=== PATIENT | female | born 1970 | race Caucasian/White ===

== ENCOUNTER → 2016-02-15 | Outpatient (CLI) | payer OTHER ==
[~2016-02-15] MED LIST: ALBUAER2 INH; ATOR-54 PO; BENZ100C84 PO; CYCL5TAB PO; CYM/30 PO; ESCI1TAB10 PO; KLN5X PO; LACO100T PO; LACO200T PO; LPT/40 PO; LYR50 PO; MELO15TA10 PO; METH500T37 PO; OMEP20CA9 PO; OXYC-106 PO; OXYC-88 PO; OXYC15TA89 PO; TROS1CAP2 PO
[2016-02-15 12:55] VITALS: BP 102/67; PULSE 70; TEMP 36.6; O2SAT 96
--- NOTE | 2016-02-15 15:30 | Radiation Oncology Follow-Up ---
Radiation Oncology Follow-Up Date of Visit Feb 15, 2016. (Carolyn Rubin PA-C) Reason For Visit Post radiation symptoms (Carolyn Rubin PA-C) Radiation Completion Date 04/19/15 (Carolyn Rubin PA-C) Diagnosis (1) Squamous cell carcinoma of anal skin Status: Resolved Onset Date: 01/20/2015 Stage: ll Permanent Comment: DIAGNOSIS: Anus, SCC, p16 positive, cT2N0, stage II Status post completion of combined radiation and chemotherapy. Radiation completed 04/19/2015 received 5400 cGy Last Edited By: Carolyn Rubin on Apr 28, 2015 10:30 (Carolyn Rubin PA-C) History of Present Illness Ms. Pulido is a 44-year-old female who presented one year ago with anal discomfort including transient bleeding and discomfort with defecation. 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 Hayes. Dr. Hayes evaluated the patient and recommended excision of the possible anal stricture. The patient was brought to the operating room on 01/20/2015. During his examination, he noted chronically inflamed tissue extending on the skin for the 9 to 12 o'clock position around the anus which extended into the anal canal. Biopsies were taken in came back positive for squamous cell carcinoma which is also p16 positive. Currently, staging scans are pending. The patient is also seen Dr. Otto Malhotra for medical oncology who is recommended consideration of pelvic chemoradiation therapy. Status post completion of combined radiation and chemotherapy. Radiation completed 04/19/2015 she received 5040 cGy. (Carolyn Rubin PA-C) Interim History The patient's main complaint today is dysuria. This continues to occur intermittently. She stated her urine was evaluated and there was no infection. AZO recommended. She was recently seen at gynecology and evaluated. 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 The physician felt that this may have been exacerbated by her radiation/chemotherapy. We discussed that the immune system is lowered with treatment. She has soreness in the perianal area after having a bowel movement. The bowel movements are pencil size. She is seeing Dr. Hayes and there is anal stenosis. His recent examination revealed no recurrence of disease. There was irritation of the perianal area for which she was a topical steroid cream. She is picking that up today. We had previously discussed using Metamucil to keep the stool soft. She states she continues to use this on a regular basis. During the treatment time. There was significant skin irritation and she used sitz baths. She has not done these of weight. (Carolyn Rubin PA-C) Allergies Coded Allergies: Levetiracetam (Verified Allergy, Mild, RASH, 02/23/15) Carbamazepine (Verified Allergy, Unknown, ., 02/23/15) Codeine (Verified Allergy, Unknown, ., 02/23/15) Home Medications Scheduled Atorvastatin (Lipitor), 20 MG PO HS Clonazepam (Clonazepam), 0.5 MG PO QAM Duloxetine HCl (Cymbalta), 1 CAP PO DAILY Lacosamide (Vimpat), 200 MG PO BID Oxycodone Hcl (Oxycontin), 15 MG PO Q12 Scheduled PRN Albuterol (Ventolin), 1-2 PUFFS INH Q4H PRN for Shortness of Breath Benzonatate (Tessalon Perles), 1 CAP PO TID PRN for Cough Cyclobenzaprine Hcl (Flexeril), 5 MG PO TID PRN for SPASM Oxycodone/Acetaminophen 10MG/325MG (Oxycodone/Acetaminophen 10MG/325MG), 1-2 TAB PO Q6H PRN for Pain Review of Systems Gastrointestinal: Symptoms: WNL GI Comments: Diarrhea - pencil like stools, blood in stool at times (last month) Oral: Symptoms: No Problems Respiratory: Symptoms: WNL Urinary: Symptoms: WNL Comments: Dr. Jones diagnosed with HPV - recc AZO Skin: Other Skin Symptoms: Rash in anal region - Ramondelli prescribed cortisone cream (Carolyn Rubin PA-C) Physical Exam Vital Signs Date Time Temp Pulse Resp B/P Pulse Ox O2 Delivery O2 Flow Rate FiO2 02/15/16 12:55 36.6 70 16 102/67 96 Fatigue: None Anal / Rectum: Examination reveals postradiation changes. No area with minimal induration. There is no telangiectasis. There are no visible lesions. There are no areas of desquamation. Extremities: no pedal edema Neurologic/Psychiatric: no motor/sensory deficits, alert Skin: warm/dry (Carolyn Rubin PA-C) Laboratory Studies Test 12/30/15 10:58 Sodium Level 145 mmol/L (136-145) Potassium Level 4.2 mmol/L (3.5-5.1) Chloride Level 107 mmol/L (98-107) Carbon Dioxide Level 29 mmol/L (21-32) Anion Gap 9.0 mmol/L (3-11) Blood Urea Nitrogen 16 mg/dl (7-18) Creatinine 0.74 mg/dl (0.60-1.20) Estimated GFR () 112.6 Estimated GFR (Non- 97.2 BUN/Creatinine Ratio 21.8 (10-20) Random Glucose 96 mg/dl (70-99) Calcium Level 9.0 mg/dl (8.5-10.1) Total Bilirubin 0.5 mg/dl (0.2-1) Aspartate Amino Transferase (AST) 30 U/L (15-37) Alanine Aminotransferase (ALT) 43 U/L (12-78) Alkaline Phosphatase 88 U/L (45-117) Total Protein 7.4 gm/dl (6.4-8.2) Albumin 3.8 gm/dl (3.4-5.0) Globulin 3.6 gm/dl (2.5-4.0) Albumin/Globulin Ratio 1.1 (0.9-2) Triglycerides Level 222 mg/dl (0-150) Cholesterol Level 215 mg/dl (0-200) HDL Cholesterol 52 mg/dl LDL Cholesterol, Calculated 119 mg/dl VLDL Cholesterol, Calculated 44 mg/dl Cholesterol/HDL Ratio 4.1 Chemistry Specimen Hemolysis Urine Opiates Screen POS (NEG) Urine Codeine Confirmation (GC/MS) NEGATIVE NG/ML (CUTOFF=50) Urine Morphine Confirm (GC/MS) NEGATIVE NG/ML (CUTOFF=50) Urine Hydrocodone Confirm (GC/MS) NEGATIVE NG/ML (CUTOFF=50) Urine Norhydrocodone NEGATIVE NG/ML (CUTOFF=50) Urine Noroxycodone 4370 NG/ML (CUTOFF=50) Urine Oxycodone Confirm (GC/MS) 1120 NG/ML (CUTOFF=50) Urine Oxymorphone Confirm (GC/MS) 2210 NG/ML (CUTOFF=50) Urine Methadone, Qualitative NEG (NEG) Urine Hydromorphone Confirm (GC/MS) NEGATIVE NG/ML (CUTOFF=50) Urine Barbiturates NEG (NEG) Urine Phencyclidine (PCP) Level NEG (NEG) Ur Amphetamine/Methamphetamine NEG (NEG) MDMA (Ecstasy) Screen NEG (NEG) Urine Benzodiazepines Screen NEG (NEG) Urine Cocaine Metabolite NEG (NEG) Urine Marijuana (THC) NEG (NEG) (Carolyn Rubin PA-C) Assessment & Plan Plan: Patient is also seen today by Dr. Malhotra. Her symptoms were reviewed. We are in agreement with the use of the topical steroid which has been prescribed by Dr. Hayes. She is picking up the prescription today. She can continue to use Azo for the dysuria. I recommended sitz baths or the perianal irritation. She should do this at least once or twice a day. We discussed using adult wipes to prevent irritation to the perianal area. She'll continue the Metamucil. I suggested Aquaphor or Desitin to act as a barrier in the perianal area. She has appointment to see Dr. Bledsoe. Continue follow-up with medical oncology. We asked her to return to our office in 6 months. (Carolyn Rubin PA-C) I agree with note created by Carolyn Rubin PA-C. I reviewed the patient's chart and information with her. I have examined and evaluated the patient. I reviewed relevant clinical information and answered the patient's and/or family' s questions. (Veeral. Malhotra MD) Total Time In Follow-Up I spent 20 minutes speaking to the patient performing examination. I spent 15 minutes reviewing information in completing this note. (Carolyn Rubin PA-C) I spent 15 minutes examining and counseling the patient. (Veeral. Malhotra MD) Copy To Dede Isaacs DO; Otto Malhotra M.D.; Domingo Hayes M.D.
== END | disposition home or self-care (01) ==
LOC: C.ONC 12:52
PROVIDERS: ATTEND Radiology Radiation Oncology
DX: Z08 Encounter for follow-up examination after completed treatment for malignant neoplasm (principal); Z92.3 Personal history of irradiation; Z85.048 Personal history of other malignant neoplasm of rectum, rectosigmoid junction, and anus

== ENCOUNTER → 2016-03-21 | Day surgery (SDC) | payer OTHER ==
[2016-03-19 10:28] VITALS: BMI 36.0
[~2016-03-21] VITALS: Ht 175.3 cm; Wt 111.4 kg
[~2016-03-21] MED LIST changes: -ATOR-54 PO; -BENZ100C84 PO; -CYM/30 PO; +LIDOCAINE HCL 2% 2 ML VIAL (20MG/ML) ONE; +MIDAZOLAM HCL 1 MG/ML 2ML VIAL ONE; -OXYC-88 PO; +PROPOFOL IV EMULSION 10 MG/ML 20 ML VIAL IV ONE; +SODIUM CHLORIDE 0.9% 500ML 500 ML IV ONE
[2016-03-21 13:59] VITALS: Ht 175.3 cm; Wt 111.4 kg
--- NOTE | 2016-03-21 15:01 | Endo History and Physical ---
History & Physical Date of Service: Mar 21, 2016. Chief Complaint: HX OF ANAL CA. Referring Physician: DR. LERMA History of Present Illness anal CA; for colonoscopyfecal incontinence Past Medical History Arthritis, Reflux, Seizure Disorder, Cancer, High Cholesterol Past Surgical History Hx Cardiac Surgery: No Hx Internal Defibrillator: No Hx Pacemaker: No Hx Abdominal Surgery: No Hx of Implantable Prosthesis: No Hx Post-Op Nausea and Vomiting: No Hx Cancer Surgery: Yes (CARCINOMA REMOVAL FROM ANUS) Hx Thoracic Surgery: No Hx Orthopedic: No Hx Urinary Tract Surgery: No Family History None Social History Smoking Status: Current Every Day Smoker Hx Substance Use: Yes (SEE MED LIST) Hx Alcohol Use: No Allergies Coded Allergies: Levetiracetam (Verified Allergy, Mild, RASH/HIVES, 03/21/16) Carbamazepine (Verified Allergy, Unknown, HIVES, 03/21/16) Codeine (Verified Allergy, Unknown, UNKNOWN, 03/21/16) Morphine (Verified Allergy, Unknown, DIZZINESS, 03/21/16) Current Medications Reported Home Medications Medications Dose Route/Sig Max Daily Dose Days Date Category Vimpat (Lacosamide) 200 Mg Tab 1 Tab PO HS 03/19/16 Reported Vimpat (Lacosamide) 100 Mg Tab 1 Tab PO QAM 03/19/16 Reported Percocet 10MG/325MG (Oxycodone/Acetaminophen) Tab 1 Tab PO Q4H PRN 03/19/16 Reported Mobic (Meloxicam) 15 Mg Tab 15 Mg PO AFTERNOON 03/19/16 Reported Lexapro (Escitalopram Oxalate) 20 Mg Tab 20 Mg PO QAM 03/19/16 Reported Lipitor (Atorvastatin) 40 Mg Tab 40 Mg PO HS 03/19/16 Reported Oxycontin (Oxycodone Hcl) 15 Mg Tab 15 Mg PO Q12 11/02/15 Reported Flexeril (Cyclobenzaprine Hcl) 5 Mg Tab 5 Mg PO TID PRN 02/16/15 Reported Ventolin (Albuterol) Inh 1-2 Puffs INH Q4H PRN 12/26/14 Reported Clonazepam 0.5 Mg Tab 0.5 Mg PO QAM PRN 12/26/14 Reported Vital Signs Weight (Kilograms): 111.36 Height (Feet): 5 Height (Inches): 9 Date Time Temp Pulse Resp B/P Pulse Ox O2 Delivery O2 Flow Rate FiO2 03/21/16 14:18 36.6 89 20 118/78 97 Room Air Physical Exam AAO x3 Nl s1s2 Lungs CTA Abd soft NTNd + BS - CCE Assessment and Plan colopnoscopy
--- NOTE | 2016-03-21 15:42 | Discharge Instructions ---
Endoscopy Patient Instructions Date / Procedure(s) Performed Mar 21, 2016. Colonoscopy Allergy Information Coded Allergies: Levetiracetam (Verified Allergy, Mild, RASH/HIVES, 03/21/16) Carbamazepine (Verified Allergy, Unknown, HIVES, 03/21/16) Codeine (Verified Allergy, Unknown, UNKNOWN, 03/21/16) Morphine (Verified Allergy, Unknown, DIZZINESS, 03/21/16) Discharge Date / Findings Mar 21, 2016. colon polyp; anal polyp Medication Instructions Stopped Medication(s): INSTRUCTED TO STOP TAKING THE MOBIC. Restart Stopped Medication(s): Reported Home Medications Medications Dose Route/Sig Max Daily Dose Days Date Category Vimpat (Lacosamide) 200 Mg Tab 1 Tab PO HS 03/19/16 Reported Vimpat (Lacosamide) 100 Mg Tab 1 Tab PO QAM 03/19/16 Reported Percocet 10MG/325MG (Oxycodone/Acetaminophen) Tab 1 Tab PO Q4H PRN 03/19/16 Reported Mobic (Meloxicam) 15 Mg Tab 15 Mg PO AFTERNOON 03/19/16 Reported Lexapro (Escitalopram Oxalate) 20 Mg Tab 20 Mg PO QAM 03/19/16 Reported Lipitor (Atorvastatin) 40 Mg Tab 40 Mg PO HS 03/19/16 Reported Oxycontin (Oxycodone Hcl) 15 Mg Tab 15 Mg PO Q12 11/02/15 Reported Flexeril (Cyclobenzaprine Hcl) 5 Mg Tab 5 Mg PO TID PRN 02/16/15 Reported Ventolin (Albuterol) Inh 1-2 Puffs INH Q4H PRN 12/26/14 Reported Clonazepam 0.5 Mg Tab 0.5 Mg PO QAM PRN 12/26/14 Reported Provider Instructions Activity Restrictions - No exercising or heavy lifting for 24 hours. - Do not drink alcohol the day of the procedure. - Do not drive a car or operate machinery until the day after the procedure. - Do not make any important decisions or sign important papers in 24 hours after the procedure. Following Day: - Return to full activity which may include returning to work/school. Diet Start your diet with liquids and light foods (jello, soup, juice, toast). Then eat your usual diet if not nauseated. Treatment For Common After Affects For mild abdominal pain, bloating, or excessive gas: - Rest - Eat lightly - Lie on right side Follow-Up Information Follow-up with DR. LERMA as scheduled Anesthesia Information What You Should Know You have had a procedure that required some medicine to reduce anxiety and discomfort. This treatment is called moderate sedation. After receiving the treatment, you may be sleepy, but you will be able to breathe on your own. The effects of the treatment may last for several hours. Follow these instructions along with Activity/Diet recommendations noted above: * Do NOT do anything where dizziness or clumsiness would be dangerous. * Rest quietly at home today, then you can be up and about tomorrow. * Have a responsible person stay with you the rest of today. * You may have had an I.V. today. If so, you may take the dressing off later today. Recommendations Call your doctor if: * Trouble breathing * Continuous vomiting for more than 24 hours * Temperature above 101 degrees * Severe abdominal pain or bloating * Pain not relieved by pain medicine ordered * There is increased drainage or redness from any incision * A large amount of rectal bleeding greater than 2-3 tablespoons. (If you had a polyp/s removed or have hemorrhoids, a small amount of blood - from the rectum is to be expected.) * You have any unanswered questions or concerns. IN THE EVENT OF A SERIOUS EMERGENCY, GO TO THE NEAREST EMERGENCY ROOM Your discharge instructions were prepared by provider Ck Dillard. Patient Instructions Signature Page Aimee Pulido Patient (or Guardian) Signature/Date: I have read and understand the instructions given to me by my caregivers. Caregiver/RN/Doctor Signature/Date: The above-named patient and/or guardian has received patient instructions on this date. + Original Patient Signature Page (only) stays with chart. Please make copy for patient.
--- NOTE | 2016-03-21 15:49 | GI REPORT ---
Procedure Date: 03/21/2016 3:02 PM Procedure: Colonoscopy Indications: High risk colon cancer surveillance: Personal history of colon cancer, Personal history of malignant rectal neoplasm Medicines: Propofol per Anesthesia Complications: No immediate complications. Estimated blood loss: Minimal. Estimated Blood Loss: Estimated blood loss was minimal. Procedure: Pre-Anesthesia Assessment: - Prior to the procedure, a History and Physical was performed, and patient medications and allergies were reviewed. The patient's tolerance of previous anesthesia was also reviewed. The risks and benefits of the procedure and the sedation options and risks were discussed with the patient. All questions were answered, and informed consent was obtained. Prior Anticoagulants: The patient has taken no previous anticoagulant or antiplatelet agents. ASA Grade Assessment: II - A patient with mild systemic disease. After reviewing the risks and benefits, the patient was deemed in satisfactory condition to undergo the procedure. After I obtained informed consent, the scope was passed under direct vision. Throughout the procedure, the patient's blood pressure, pulse, and oxygen saturations were monitored continuously. The scope was introduced through the anus and advanced to the terminal ileum, with identification of the appendiceal orifice and IC valve. The colonoscopy was performed without difficulty. The patient tolerated the procedure well. The quality of the bowel preparation was good. Findings: The perianal and digital rectal examinations were normal. Pertinent negatives include normal sphincter tone, no palpable rectal lesions and no anal lesion or abnormality was detected. A 8 mm polyp was found at 70 cm proximal to the anus. The polyp was sessile. The polyp was removed with a hot snare. Resection and retrieval were complete. Estimated blood loss was minimal. Estimated blood loss was minimal. Verification of patient identification for the specimen was done by the physician and non morse intercept technician using the patient's name and medical record number. A 5 mm polyp was found at 30 cm proximal to the anus. The polyp was sessile. The polyp was removed with a cold biopsy forceps. Resection and retrieval were complete. Estimated blood loss was minimal. Verification of patient identification for the specimen was done by the physician and non morse intercept technician using the patient's name and medical record number. A localized area of moderately altered vascular, congested, granular and hemorrhagic, polypoid appearing mucosa was found at the anus. The exam was otherwise without abnormality. The terminal ileum appeared normal. No additional abnormalities were found on retroflexion. Impression: - One 8 mm polyp at 70 cm proximal to the anus, removed with a hot snare. Resected and retrieved. - One 5 mm polyp at 30 cm proximal to the anus, removed with a cold biopsy forceps. Resected and retrieved. - Altered vascular, congested, granular and hemorrhagic, polypoid appearing mucosa at the anus. - The examination was otherwise normal. - The examined portion of the ileum was normal. Recommendation: - Discharge patient to home (ambulatory). - Resume regular diet. - Continue present medications. - Await pathology results. - Return to referring physician as previously scheduled. MD Ck Taylor MD 03/21/2016 3:50:14 PM This report has been signed electronically. Note Initiated On: 03/21/2016 3:02 PM I attest to the content of the Intraoperative Record and orders documented therein, exceptions below
--- NOTE | 2016-03-21 16:03 | Anesthesiology Progress Note ---
Anesthesia Post Op Note Date & Time Mar 21, 2016 at 16:03 Vital Signs Pain Intensity: 0 Vital Signs Past 12 Hours Date Time Temp Pulse Resp B/P Pulse Ox O2 Delivery O2 Flow Rate FiO2 03/21/16 15:50 72 20 109/58 97 Room Air 03/21/16 14:18 36.6 89 20 118/78 97 Room Air Notes Mental Status: alert / awake / arousable, participated in evaluation Pt Amnestic to Procedure: Yes Nausea / Vomiting: adequately controlled Pain: adequately controlled Airway Patency, RR, SpO2: stable & adequate BP & HR: stable & adequate Hydration State: stable & adequate Anesthetic Complications: no major complications apparent
[2016-03-21 16:20] VITALS: BP 114/87; PULSE 83; O2SAT 97
== END | disposition home or self-care (01) ==
LOC: C.GI 13:42
PROVIDERS: ATTEND Internal Medicine Gastroenterology
DX: Z12.11 Encounter for screening for malignant neoplasm of colon (principal); K62.0 Anal polyp; D12.6 Benign neoplasm of colon, unspecified; Z85.048 Personal history of other malignant neoplasm of rectum, rectosigmoid junction, and anus; R15.9 Full incontinence of feces; G40.909 Epilepsy, unspecified, not intractable, without status epilepticus; E78.00 Pure hypercholesterolemia, unspecified; F17.210 Nicotine dependence, cigarettes, uncomplicated

== ENCOUNTER → 2016-04-28 | Outpatient (CLI) | payer OTHER ==
[~2016-04-28] MED LIST changes: -LIDOCAINE HCL 2% 2 ML VIAL (20MG/ML) ONE; -MIDAZOLAM HCL 1 MG/ML 2ML VIAL ONE; -PROPOFOL IV EMULSION 10 MG/ML 20 ML VIAL IV ONE; -SODIUM CHLORIDE 0.9% 500ML 500 ML IV ONE
[2016-04-28 13:26] LABS: ALT/SGPT 34 U/L (12-78); AST/SGOT 9 U/L (15-37); BLOOD UREA NITROGEN 14 mg/dl (7-18); BUN/CREATININE RATIO 19.8 (10-20); CARBON DIOXIDE 28 mmol/L (21-32); CHLORIDE 105 mmol/L (98-107); CREATININE 0.73 mg/dl (0.60-1.20); GLUCOSE 92 mg/dl (70-99); SODIUM 143 mmol/L (136-145)
[2016-04-28 13:37] LABS: ALKALINE PHOSPHATASE 97 U/L (45-117); CHOLESTEROL 216 mg/dl (0-200); CHOLESTEROL/HDL RATIO 4.2; HDL CHOLESTEROL 52 mg/dl; LDL CHOLESTEROL CALCULATED 113 mg/dl; TRIGLYCERIDES 256 mg/dl (0-150); VERY LOW DENSITY LIPOPROT CALC 51 mg/dl
== END | disposition home or self-care (01) ==
LOC: C.LAB 12:09
PROVIDERS: ATTEND Family Medicine
DX: E78.5 Hyperlipidemia, unspecified (principal); E88.81 Metabolic syndrome and other insulin resistance

== ENCOUNTER → 2016-05-13 | Outpatient (CLI) | payer OTHER ==
[2016-05-13 15:38] LABS: BENZODIAZEPINE, URINE NEG (NEG); COCAINE,URINE NEG (NEG); PHENCYCLIDINE, URINE NEG (NEG)
== END | disposition home or self-care (01) ==
LOC: C.LABBC 13:24
PROVIDERS: ATTEND Family Medicine
DX: Z51.81 Encounter for therapeutic drug level monitoring (principal); Z79.899 Other long term (current) drug therapy

== ENCOUNTER → 2016-05-17 | Day surgery (SDC) | payer OTHER ==
[2016-05-03 12:19] VITALS: Ht 175.3 cm; Wt 111.4 kg
[~2016-05-17] VITALS: Ht 175.3 cm; Wt 111.4 kg
[~2016-05-17] MED LIST changes: +ATROPINE SULFATE 0.1 MG/ML 5ML SYR IV PRN; +EpHEDrine SULFATE INJ 50 MG/ML AMP IV PRN; +LIDOCAINE HCL 2% 2 ML VIAL (20MG/ML) ONE; +MIDAZOLAM HCL 1 MG/ML 2ML VIAL ONE; +ONDANSETRON INJ 2 MG/ML 2 ML VIAL ONE; +PROPOFOL IV EMULSION 10 MG/ML 20 ML VIAL IV ONE
--- NOTE | 2016-05-17 13:05 | Endo History and Physical ---
History & Physical Date of Service: May 17, 2016. Chief Complaint: chest pain, reflux, h/o esophageal ulcer Referring Physician: Dr. De Guzman History of Present Illness 45 yo CF who presents for EGD secondary to chest pain, GERD and history of esophageal ulcer. Past Medical History Arthritis, Reflux, Seizure Disorder, Cancer, High Cholesterol Past Surgical History Hx Cardiac Surgery: No Hx Internal Defibrillator: No Hx Pacemaker: No Hx Abdominal Surgery: No Hx Post-Op Nausea and Vomiting: No Hx Cancer Surgery: Yes (CARCINOMA REMOVAL FROM ANUS) Hx Thoracic Surgery: No Hx Orthopedic: No Hx Urinary Tract Surgery: No Family History None Social History Smoking Status: Current Every Day Smoker Hx Substance Use: Yes (SEE MED LIST) Hx Alcohol Use: No Allergies Coded Allergies: Levetiracetam (Verified Allergy, Mild, RASH/HIVES, 05/17/16) Carbamazepine (Verified Allergy, Unknown, HIVES, 05/17/16) Codeine (Verified Allergy, Unknown, UNKNOWN, 05/17/16) Morphine (Verified Allergy, Unknown, DIZZINESS, 05/17/16) Current Medications Reported Home Medications Medications Dose Route/Sig Max Daily Dose Days Date Category Vimpat (Lacosamide) 200 Mg Tab 1 Tab PO HS 03/19/16 Reported Vimpat (Lacosamide) 100 Mg Tab 1 Tab PO QAM 03/19/16 Reported Percocet 10MG/325MG (Oxycodone/Acetaminophen) Tab 1 Tab PO Q4H PRN 03/19/16 Reported Mobic (Meloxicam) 15 Mg Tab 15 Mg PO AFTERNOON 03/19/16 Reported Lexapro (Escitalopram Oxalate) 20 Mg Tab 20 Mg PO QAM 03/19/16 Reported Lipitor (Atorvastatin) 40 Mg Tab 40 Mg PO HS 03/19/16 Reported Oxycontin (Oxycodone Hcl) 15 Mg Tab 15 Mg PO Q12 11/02/15 Reported Flexeril (Cyclobenzaprine Hcl) 5 Mg Tab 5 Mg PO TID PRN 02/16/15 Reported Ventolin (Albuterol) Inh 1-2 Puffs INH Q4H PRN 12/26/14 Reported Clonazepam 0.5 Mg Tab 0.5 Mg PO QAM PRN 12/26/14 Reported Vital Signs Weight (Kilograms): 111.36 Height (Feet): 5 Height (Inches): 9 Date Time Temp Pulse Resp B/P Pulse Ox O2 Delivery O2 Flow Rate FiO2 05/17/16 12:14 36.9 80 20 113/76 95 Room Air Physical Exam General Appearance: WD/WN, no apparent distress Respiratory/Chest: Auscultation: breath sounds normal Cardiovascular: Heart Auscultation: RRR Abdomen: Bowel Sounds: normal Inspection & Palpation: soft, non-distended, no tenderness, guarding & rebound Assessment and Plan Assessment: 45 yo CF who presents for EGD secondary to chest pain, GERD and history of esophageal ulcer. Plan: Proceed with EGD.
--- NOTE | 2016-05-17 13:51 | Discharge Instructions ---
Endoscopy Patient Instructions Date / Procedure(s) Performed May 17, 2016. EGD Allergy Information Coded Allergies: Levetiracetam (Verified Allergy, Mild, RASH/HIVES, 05/17/16) Carbamazepine (Verified Allergy, Unknown, HIVES, 05/17/16) Codeine (Verified Allergy, Unknown, UNKNOWN, 05/17/16) Morphine (Verified Allergy, Unknown, DIZZINESS, 05/17/16) Discharge Date / Findings May 17, 2016. Gastritis s/p biopsies Hiatal hernia Medication Instructions Stopped Medication(s): All meds stopped except Vimpat. OK to resume all medications today as prescribed Reported Home Medications Medications Dose Route/Sig Max Daily Dose Days Date Category Vimpat (Lacosamide) 200 Mg Tab 1 Tab PO HS 03/19/16 Reported Vimpat (Lacosamide) 100 Mg Tab 1 Tab PO QAM 03/19/16 Reported Percocet 10MG/325MG (Oxycodone/Acetaminophen) Tab 1 Tab PO Q4H PRN 03/19/16 Reported Mobic (Meloxicam) 15 Mg Tab 15 Mg PO AFTERNOON 03/19/16 Reported Lexapro (Escitalopram Oxalate) 20 Mg Tab 20 Mg PO QAM 03/19/16 Reported Lipitor (Atorvastatin) 40 Mg Tab 40 Mg PO HS 03/19/16 Reported Oxycontin (Oxycodone Hcl) 15 Mg Tab 15 Mg PO Q12 11/02/15 Reported Flexeril (Cyclobenzaprine Hcl) 5 Mg Tab 5 Mg PO TID PRN 02/16/15 Reported Ventolin (Albuterol) Inh 1-2 Puffs INH Q4H PRN 12/26/14 Reported Clonazepam 0.5 Mg Tab 0.5 Mg PO QAM PRN 12/26/14 Reported Provider Instructions Activity Restrictions - No exercising or heavy lifting for 24 hours. - Do not drink alcohol the day of the procedure. - Do not drive a car or operate machinery until the day after the procedure. - Do not make any important decisions or sign important papers in 24 hours after the procedure. Following Day: - Return to full activity which may include returning to work/school. Diet Start your diet with liquids and light foods (jello, soup, juice, toast). Then eat your usual diet if not nauseated. Treatment For Common After Affects For mild abdominal pain, bloating, or excessive gas: - Rest - Eat lightly - Lie on right side Follow-Up Information Follow-up with Dr. De Guzman as scheduled Anesthesia Information What You Should Know You have had a procedure that required some medicine to reduce anxiety and discomfort. This treatment is called moderate sedation. After receiving the treatment, you may be sleepy, but you will be able to breathe on your own. The effects of the treatment may last for several hours. Follow these instructions along with Activity/Diet recommendations noted above: * Do NOT do anything where dizziness or clumsiness would be dangerous. * Rest quietly at home today, then you can be up and about tomorrow. * Have a responsible person stay with you the rest of today. * You may have had an I.V. today. If so, you may take the dressing off later today. Recommendations Call your doctor if: * Trouble breathing * Continuous vomiting for more than 24 hours * Temperature above 101 degrees * Severe abdominal pain or bloating * Pain not relieved by pain medicine ordered * There is increased drainage or redness from any incision * A large amount of rectal bleeding greater than 2-3 tablespoons. (If you had a polyp/s removed or have hemorrhoids, a small amount of blood - from the rectum is to be expected.) * You have any unanswered questions or concerns. IN THE EVENT OF A SERIOUS EMERGENCY, GO TO THE NEAREST EMERGENCY ROOM Your discharge instructions were prepared by provider Miah Garcia. Patient Instructions Signature Page Aimee Pulido Patient (or Guardian) Signature/Date: I have read and understand the instructions given to me by my caregivers. Caregiver/RN/Doctor Signature/Date: The above-named patient and/or guardian has received patient instructions on this date. + Original Patient Signature Page (only) stays with chart. Please make copy for patient.
--- NOTE | 2016-05-17 13:56 | GI REPORT ---
Procedure Date: 05/17/2016 1:28 PM Procedure: Upper GI endoscopy Indications: Epigastric abdominal pain, Gastro-esophageal reflux disease Medicines: Monitored Anesthesia Care Complications: No immediate complications. Estimated Blood Loss: Estimated blood loss: none. Procedure: Pre-Anesthesia Assessment: - Prior to the procedure, a History and Physical was performed, and patient medications and allergies were reviewed. The patient's tolerance of previous anesthesia was also reviewed. The risks and benefits of the procedure and the sedation options and risks were discussed with the patient. All questions were answered, and informed consent was obtained. Prior Anticoagulants: The patient has taken no previous anticoagulant or antiplatelet agents. ASA Grade Assessment: II - A patient with mild systemic disease. After reviewing the risks and benefits, the patient was deemed in satisfactory condition to undergo the procedure. After obtaining informed consent, the endoscope was passed under direct vision. Throughout the procedure, the patient's blood pressure, pulse, and oxygen saturations were monitored continuously. The scope was introduced through the mouth, and advanced to the second part of duodenum. The upper GI endoscopy was accomplished without difficulty. The patient tolerated the procedure well. Findings: The esophagus was normal. A small hiatus hernia was present. Localized mild inflammation characterized by erythema was found in the gastric antrum. Biopsies were taken with a cold forceps for histology. The examined duodenum was normal. Impression: - Normal esophagus. - Small hiatus hernia. - Gastritis. Biopsied. - Normal examined duodenum. Recommendation: - Resume previous diet. - Continue present medications. - Await pathology results. - Return to primary care physician as previously scheduled. Miah Garcia, 05/17/2016 1:55:46 PM This report has been signed electronically. Note Initiated On: 05/17/2016 1:28 PM I attest to the content of the Intraoperative Record and orders documented therein, exceptions below
--- NOTE | 2016-05-17 14:09 | Anesthesiology Progress Note ---
Anesthesia Post Op Note Date & Time May 17, 2016 at 14:08 Vital Signs Pain Intensity: 7 Vital Signs Past 12 Hours Date Time Temp Pulse Resp B/P Pulse Ox O2 Delivery O2 Flow Rate FiO2 05/17/16 13:59 91 20 98/65 93 Room Air 05/17/16 12:14 36.9 80 20 113/76 95 Room Air Notes Mental Status: alert / awake / arousable, participated in evaluation Pt Amnestic to Procedure: Yes Nausea / Vomiting: adequately controlled Pain: adequately controlled Airway Patency, RR, SpO2: stable & adequate BP & HR: stable & adequate Hydration State: stable & adequate Anesthetic Complications: no major complications apparent
[2016-05-17 14:20] VITALS: BP 112/84; PULSE 86; O2SAT 96
== END | disposition home or self-care (01) ==
LOC: C.GI 11:03
PROVIDERS: ATTEND Internal Medicine
DX: K29.70 Gastritis, unspecified, without bleeding (principal); K21.9 Gastro-esophageal reflux disease without esophagitis; K31.89 Other diseases of stomach and duodenum; K44.9 Diaphragmatic hernia without obstruction or gangrene; M19.90 Unspecified osteoarthritis, unspecified site; I10 Essential (primary) hypertension; G40.909 Epilepsy, unspecified, not intractable, without status epilepticus; Z98.890 Other specified postprocedural states; F17.210 Nicotine dependence, cigarettes, uncomplicated; Z88.5 Allergy status to narcotic agent; Z88.8 Allergy status to other drugs, medicaments and biological substances

== ENCOUNTER → 2016-05-20 | Outpatient (CLI) | payer OTHER ==
[~2016-05-20] MED LIST changes: -ATROPINE SULFATE 0.1 MG/ML 5ML SYR IV PRN; -EpHEDrine SULFATE INJ 50 MG/ML AMP IV PRN; -LIDOCAINE HCL 2% 2 ML VIAL (20MG/ML) ONE; -MIDAZOLAM HCL 1 MG/ML 2ML VIAL ONE; -ONDANSETRON INJ 2 MG/ML 2 ML VIAL ONE; -PROPOFOL IV EMULSION 10 MG/ML 20 ML VIAL IV ONE
[2016-05-20 14:56] LABS: URINE APPEARANCE CLEAR (CLEAR); URINE BILIRUBIN NEG (NEG); URINE COLOR YELLOW; URINE NITRITE NEG (NEG); URINE SPECIFIC GRAVITY 1.021 (1.000-1.030); UROBILINOGEN NEG (NEG)
[2016-05-20 15:07] LABS: MANUAL MICROSCOPIC REQUIRED? NO; REVIEW REQ? NO
== END | disposition home or self-care (01) ==
LOC: C.LABSPEC 13:46
PROVIDERS: ATTEND Obstetrics & Gynecology
DX: N39.0 Urinary tract infection, site not specified (principal)

== ENCOUNTER → 2016-07-01 | Outpatient (CLI) | payer OTHER | END | disposition home or self-care (01) | LOC: C.LABSPEC 17:02 | PROVIDERS: ATTEND Nurse Practitioner Adult Health | DX: R32 Unspecified urinary incontinence (principal) ==

== ENCOUNTER → 2016-08-15 | Outpatient (CLI) | payer OTHER ==
[2016-08-15 13:26] VITALS: BP 123/76; PULSE 76; TEMP 36.7; O2SAT 97
--- NOTE | 2016-08-15 16:25 | Radiation Oncology Follow-Up ---
Radiation Oncology Follow-Up Date of Visit Aug 15, 2016. (Carolyn Rubin PA-C) Reason For Visit 6 month follow-up (Carolyn Rubin PA-C) Radiation Completion Date 04/19/15 (Carolyn Rubin PA-C) Diagnosis (1) Squamous cell carcinoma of anal skin Status: Resolved Onset Date: 01/20/2015 Stage: ll Permanent Comment: DIAGNOSIS: Anus, SCC, p16 positive, cT2N0, stage II Status post completion of combined radiation and chemotherapy. Radiation completed 04/19/2015 received 5400 cGy Last Edited By: Carolyn Rubin on Apr 28, 2015 10:30 (Carolyn Rubin PA-C) History of Present Illness Ms. Pulido is a 45-year-old female who presented one year ago with anal discomfort including transient bleeding and discomfort with defecation. This continued to get worse and she did see her manager electrical who ended up referring her to Dr. Hayes. Dr. Hayes evaluated the patient and recommended excision of the possible anal stricture. The patient was brought to the operating room on 01/20/2015. During his examination, he noted chronically inflamed tissue extending on the skin for the 9 to 12 o'clock position around the anus which extended into the anal canal. Biopsies were taken in came back positive for squamous cell carcinoma which is also p16 positive. Currently, staging scans are pending. The patient is also seen Dr. Otto Malhotra for medical oncology who is recommended consideration of pelvic chemoradiation therapy. Status post completion of combined radiation and chemotherapy. Radiation completed 04/19/2015 she received 5040 cGy. (Carolyn Rubin PA-C) Interim History She continues to have problems with dysuria. She is being followed by urology. She was tried on Pyridium which offered minimal relief. She is scheduled for cystoscopy 09/04/2016. She was seen by Dr. Hayes 2 days ago. He is reporting no reoccurrence on physical examination. She also had a colonoscopy in March. This was performed 03/31/2016. Biopsies were taken. All were benign. She did not have any complaints of constipation or diarrhea. She had an upper GI endoscopy 05/17/2016. She was found have gastritis. She is now on Prilosec. (Carolyn Rubin PA-C) Allergies Coded Allergies: Levetiracetam (Verified Allergy, Mild, RASH/HIVES, 05/17/16) Carbamazepine (Verified Allergy, Unknown, HIVES, 05/17/16) Codeine (Verified Allergy, Unknown, UNKNOWN, 05/17/16) Morphine (Verified Allergy, Unknown, DIZZINESS, 05/17/16) Home Medications Scheduled Atorvastatin (Lipitor), 40 MG PO HS Escitalopram Oxalate (Lexapro), 20 MG PO QAM Lacosamide (Vimpat), 1 TAB PO QAM Lacosamide (Vimpat), 1 TAB PO HS Methocarbamol (Robaxin), 500 MG PO TID Omeprazole (Prilosec), 1 CAP PO DAILY Oxycodone Hcl (Oxycontin), 15 MG PO Q12 Pregabalin (Lyrica), 50 MG PO BID Trospium Chloride (Trospium Chloride Er), 1 TAB PO DAILY Scheduled PRN Albuterol (Ventolin), 1-2 PUFFS INH Q4H PRN for Shortness of Breath Clonazepam (Clonazepam), 0.5 MG PO QAM PRN for SHAKING Cyclobenzaprine Hcl (Flexeril), 5 MG PO TID PRN for SPASM Oxycodone/Acetaminophen 10MG/325MG (Percocet 10MG/325MG), 1 TAB PO TID PRN for Pain Review of Systems Gastrointestinal: Symptoms: Rectal Bleeding GI Comments: Intermittent spotting in stools;Recent colonoscopy 03/31/16; Oral: Symptoms: No Problems Respiratory: Symptoms: SOB With Exertion Other Respiratory: SOB w/exertion - no change Urinary: Symptoms: Incontinence Comments: see below notations Skin: Symptoms: No Problems Other Skin Symptoms: Reports no skin irritation in periarea any longer; (Carolyn Rubin, PA-C) Physical Exam Vital Signs Date Time Temp Pulse Resp B/P (MAP) Pulse Ox O2 Delivery O2 Flow Rate FiO2 08/15/16 13:26 36.7 76 20 123/76 97 Fatigue: None General Appearance: no apparent distress Eyes: normal inspection, EOMI ENT: normal ENT inspection, hearing grossly normal Anal / Rectum: Declined anal/rectal exam. (Carolyn Rubin PA-C) Laboratory Studies Test 05/20/16 00:00 Urine Color YELLOW Urine Appearance CLEAR (CLEAR) Urine pH 5.0 (4.5-7.5) Urine Specific Mcgregor 1.021 (1.000-1.030) Urine Protein NEG (NEG) Urine Glucose (UA) NEG (NEG) Urine Ketones NEG (NEG) Urine Occult Blood NEG (NEG) Urine Nitrite NEG (NEG) Urine Bilirubin NEG (NEG) Urine Urobilinogen NEG (NEG) Urine Leukocyte Esterase NEG (NEG) (Carolyn Rubin PA-C) Additional Studies [facility] SURGICAL PATHOLOGY REPORT Name AIMEE PULIDO Case: -S SURGICAL PATHOLOGY REPORT Page 2 of 2 [place] [address] Sukhdev Robledo M.D. modeling and simulation analyst PATHOLOGY REPORT SURGICAL PATHOLOGY REPORT Page 1 of 1 Name AIMEE PULIDO Age/Sex 45/F Location: C.GI MR# [id number] : 1970 /Bed Physician: Ck Dillard M.D. Case: [id number] Received 03/21/16 Specimen Date 03/21/16 CLINICAL HISTORY History of anal cancer. GROSS DESCRIPTION A. BIOPSY OF POLYP AT 30 The specimen is received in a container labeled as bx polyp at 30 with patient name Aimee Pulido. The specimen consists of two irregular fragments of pink soft tissue, each measuring 0.3 cm in greatest dimension. The specimen is entirely submitted in a single cassette as A for levels. B. POLYP AT 70 The specimen is received in a container labeled as polyp at 70 with patient name Aimee Pulido. The specimen consists of a pink to alvarado polyp which measures 0.8 x 0.6 x 0.5 cm. The specimen is bisected and entirely submitted in a single cassette as B. C. ANAL VERGE The specimen is received in a container labeled as anal verge bx polyp with patient name Aimee Pulido. The specimen consists of five irregular and polypoid fragments of pink soft tissue which range from 0.3 to 0.6 cm in greatest dimension. The specimen is entirely submitted in a single cassette as C. SH/pi FINAL DIAGNOSIS A. COLON, 30 CM (POLYPECTOMY): 1. A SESSILE SERRATED POLYP WITH FOCAL FEATURES OF A SESSILE SERRATED ADENOMA IS SEEN. 2. HIGH-GRADE GLANDULAR DYSPLASIA AND CARCINOMA ARE NOT SEEN. 3. LEVELS X3 ARE EXAMINED ON THIS PART. B. COLON, 70 CM (POLYPECTOMY): 1. A SESSILE SERRATED POLYP WITH FOCAL FEATURES OF A SESSILE SERRATED ADENOMA IS SEEN. 2. HIGH-GRADE GLANDULAR DYSPLASIA AND CARCINOMA ARE NOT SEEN. 3. LEVELS X3 ARE EXAMINED ON THIS PART. C. ANAL VERGE (CONTAINER LABELED ANAL VERGE BIOPSY POLYP): 1. FIVE IRREGULAR, POLYPOID FRAGMENTS OF BENIGN GLANDULAR MUCOSA WITH MILD EDEMA OF THE LAMINA PROPRIA, TWO CLUSTERS OF MUCIPHAGES, FOCAL MILD CHRONIC INFLAMMATION, AND HYPERPLASIA OF THE MUSCULARIS MUCOSAE ARE SEEN. 2. DYSPLASIA AND CARCINOMA ARE NOT SEEN. 3. THE CLINICAL HISTORY OF ANAL CANCER IS NOTED. HK/pi/mas COPIES TO Dede De Guzman, DO [facility] [place] [address] Ck Dillard M.D. [address] [place] [address], [place] [address] Signed: <signature on file> 03/25/16 Gregory Carson M.D. (Carolyn Rubin PA-C) Assessment & Plan Plan: The patient is also seen today by Dr. Malhotra. We have reviewed her recent studies and pathology. She continues follow-up with medical oncology, her primary care physician, and Dr. Hayes. She'll be undergoing cystoscopy . We asked her to return to our office in 6 months. She may call if she has any questions or concerns in the interim. (Carolyn Rubin PA-C) I agree with note created by Carolyn Rubin PA-C. I reviewed the patient's chart and information with her. I have examined and evaluated the patient. I reviewed relevant clinical information and answered the patient's and/or family' s questions. (Veeral. Malhotra MD) Total Time In Follow-Up We spent 15 minutes speaking to the patient. We spent 15 minutes reviewing information and completing this note. (Carolyn Rubin PA-C) I spent 15 minutes examining and counseling the patient. (Veeral. Malhotra MD) Copy To Otto Malhotra M.D.; Domingo Hayes M.D.; Kimmy Tenorio MD
== END | disposition home or self-care (01) ==
LOC: C.ONC 13:04
PROVIDERS: ATTEND Physician Assistant Medical
DX: Z08 Encounter for follow-up examination after completed treatment for malignant neoplasm (principal); Z92.3 Personal history of irradiation; Z85.048 Personal history of other malignant neoplasm of rectum, rectosigmoid junction, and anus

== ENCOUNTER → 2016-09-28 | Outpatient (CLI) | payer OTHER ==
[~2016-09-28] MED LIST changes: -MELO15TA10 PO
[2016-09-28 10:32] LABS: BASO % 0.5 %; BASO ABS # 0.03 K/uL (0-0.2); COMPLETE YES; EOS % 1.9 %; HEMATOCRIT 39.3 % (37-47); IG% 0.2 %; LYMPH % 26.5 %; LYMPH ABS # 1.52 K/uL (1.2-3.4); MEAN CELL VOLUME 90.1 fL (80-100); MEAN CORPUSCULAR HEMOGLOBIN 28.2 pg (25-34); MEAN CORPUSCULAR HGB CONC 31.3 g/dl (32-36); MEAN PLATELET VOLUME 8.9 fL (7.4-10.4); MONO % 19.3 %; NEUT % 51.6 %; PLATELET COUNT 274 K/uL (130-400); RED BLOOD COUNT 4.36 M/uL (4.2-5.4); WHITE BLOOD COUNT 5.74 K/uL (4.8-10.8)
[2016-09-28 10:48] LABS: ESTIMATED AVERAGE GLUCOSE 120 mg/dl; HA1C FLAG Normal (Normal)
[2016-09-28 11:12] LABS: ALT/SGPT 28 U/L (12-78); BLOOD UREA NITROGEN 19 mg/dl (7-18); BUN/CREATININE RATIO 26.1 (10-20); CALCIUM 8.5 mg/dl (8.5-10.1); CARBON DIOXIDE 26 mmol/L (21-32); CHLORIDE 109 mmol/L (98-107); CREATININE 0.71 mg/dl (0.60-1.20); GLUCOSE 98 mg/dl (70-99); GLUCOSE,FASTING 98 mg/dl (70-99); POTASSIUM 4.2 mmol/L (3.5-5.1); SODIUM 139 mmol/L (136-145)
[2016-09-28 11:22] LABS: ALB/GLOB RATIO 0.9 (0.9-2); ALKALINE PHOSPHATASE 85 U/L (45-117); AST/SGOT 12 U/L (15-37)
[2016-09-28 15:29] LABS: LYME DISEASE AB IGG NEG (NEG); LYME DISEASE AB IGM POS (NEG)
[2016-10-03 08:36] LABS: 18KDIGG BAND REACTIVE (NONREACTIVE); 23KDIGG BAND NONREACTIVE (NONREACTIVE); 23KDIGM BAND REACTIVE (NONREACTIVE); 28KDIGG BAND NONREACTIVE (NONREACTIVE); 30KDIGG BAND NONREACTIVE (NONREACTIVE); 39KDIGG BAND NONREACTIVE (NONREACTIVE); 39KDIGM BAND NONREACTIVE (NONREACTIVE); 41KDIGG BAND REACTIVE (NONREACTIVE); 41KDIGM BAND REACTIVE (NONREACTIVE); 45KDIGG BAND NONREACTIVE (NONREACTIVE); 58KDIGG BAND NONREACTIVE (NONREACTIVE); 66KDIGG BAND NONREACTIVE (NONREACTIVE); 93KDIGG BAND NONREACTIVE (NONREACTIVE)
== END | disposition home or self-care (01) ==
LOC: C.LAB 09:47
PROVIDERS: ATTEND Family Medicine
DX: R42 Dizziness and giddiness (principal)

== ENCOUNTER → 2016-10-02 | Outpatient (CLI) | payer OTHER ==
[~2016-10-02] MED LIST changes: +GADAVIST IV PRN
--- NOTE | 2016-10-02 11:25 | DIAGNOSTIC IMAGING REPORT ---
Brain and internal auditory canal MRI WITH AND WITHOUT CONTRAST HISTORY: Vertigo TECHNIQUE: Multiplanar multisequence MRI of the brain and internal auditory canals were performed both before and after the intravenous administration of contrast. COMPARISON STUDY: Brain MRI 08/24/2010. FINDINGS: No areas of restricted diffusion to suggest acute infarction. The midline structures are intact. Moderate mucosal thickening within the left frontal sinus. The mastoid air cells are clear. The major vascular flow-voids at the skull base are well-maintained. No hematoma or midline shift. The ventricles are normal in size. Moderate cerebellar atrophy, unchanged. The major flow-voids at the skull base are maintained. Stable 1.3 x 0.6 cm extra-axial enhancing mass within the high convexity left parietal region. This demonstrates an enhancing dural tail. Therefore, this is consistent with a meningioma. No additional areas of abnormal enhancement identified. There is mild narrowing of the proximal bilateral internal auditory canals due to the slight bony prominence of the mastoids. This remains unchanged. No abnormal enhancement or masses identified within the internal auditory canals. IMPRESSION: 1. Overall, no significant change compared to the prior study. No acute intracranial abnormality. 2. Stable 1.3 x 0.6 cm left parietal meningioma. 3. No abnormal enhancement or masses within the internal auditory canals. Mild narrowing of the bilateral proximal internal auditory canals due to the bony prominence of the mastoids remains unchanged. 4. Moderate cerebellar atrophy is again noted. Electronically signed by: Shade hTomason M.D. 10/02/2016 11:24 AM Dictated Date/Time: 10/02/2016 11:12 AM
== END | disposition home or self-care (01) ==
LOC: C.MRIBC 10:00
PROVIDERS: ATTEND Physician Assistant
DX: R42 Dizziness and giddiness (principal); D32.9 Benign neoplasm of meninges, unspecified; G31.9 Degenerative disease of nervous system, unspecified

== ENCOUNTER → 2016-10-07 | Outpatient (CLI) | payer OTHER ==
[~2016-10-07] MED LIST changes: -GADAVIST IV PRN
== END | disposition home or self-care (01) ==
LOC: C.LABSPEC 10:46
PROVIDERS: ATTEND Nurse Practitioner Adult Health
DX: R32 Unspecified urinary incontinence (principal); R39.15 Urgency of urination

== ENCOUNTER → 2016-12-30 | Outpatient (CLI) | payer OTHER | END | disposition home or self-care (01) | LOC: C.LABSPEC 10:48 | PROVIDERS: ATTEND Urology | DX: R32 Unspecified urinary incontinence (principal); N30.40 Irradiation cystitis without hematuria; R39.15 Urgency of urination ==

== ENCOUNTER → 2017-01-10 | Outpatient (CLI) | payer OTHER ==
--- NOTE | 2017-01-10 11:05 | DIAGNOSTIC IMAGING REPORT ---
R KNEE 1 OR 2 VIEWS ROUTINE CLINICAL HISTORY: RIGHT KNEE PAIN pain COMPARISON: None. DISCUSSION: Joint spaces are considered intact. There is a focal depression deformity potentially the anterior margin of the medial femoral condyle. Age is uncertain. No evidence of chondrocalcinosis. All remaining osseous structures are unremarkable. There is no evidence for soft tissue swelling. IMPRESSION: Pain decompression type deformity anterior femoral condyle, of uncertain age, possibly located medially. No additional bony abnormalities appreciated. The above report was generated using voice recognition software. It may contain grammatical, syntax or spelling errors. Electronically signed by: Kalyan Stover M.D. 01/10/2017 11:04 AM Dictated Date/Time: 01/10/2017 11:01 AM
[2017-01-10 12:36] LABS: ESTIMATED AVERAGE GLUCOSE 111 mg/dl; HA1C FLAG Normal (Normal)
[2017-01-10 13:00] LABS: ALT/SGPT 38 U/L (12-78); BLOOD UREA NITROGEN 17 mg/dl (7-18); CALCIUM 9.2 mg/dl (8.5-10.1); CARBON DIOXIDE 26 mmol/L (21-32); CHLORIDE 105 mmol/L (98-107); CHOLESTEROL 228 mg/dl (0-200); GLUCOSE 92 mg/dl (70-99); POTASSIUM 4.3 mmol/L (3.5-5.1); SODIUM 138 mmol/L (136-145)
[2017-01-10 13:03] LABS: CHOLESTEROL/HDL RATIO 4.8; HDL CHOLESTEROL 48 mg/dl; LDL CHOLESTEROL CALCULATED 139 mg/dl; TRIGLYCERIDES 204 mg/dl (0-150); VERY LOW DENSITY LIPOPROT CALC 41 mg/dl
== END | disposition home or self-care (01) ==
LOC: C.LAB 10:36
PROVIDERS: ATTEND Family Medicine
DX: M25.561 Pain in right knee (principal); E88.81 Metabolic syndrome and other insulin resistance; E78.5 Hyperlipidemia, unspecified

== ENCOUNTER → 2017-01-17 | Outpatient (CLI) | payer OTHER | END | disposition home or self-care (01) | LOC: C.PAPS 16:12 | PROVIDERS: ATTEND Obstetrics & Gynecology | DX: Z01.419 Encounter for gynecological examination (general) (routine) without abnormal findings (principal) ==

== ENCOUNTER → 2017-02-19 | Outpatient (CLI) | payer OTHER ==
[~2017-02-19] MED LIST changes: +DULO60CA44 PO; +FURO-85 PO; +MILN50TA PO; +ONDA4TAB65 PO; +OXYC20TA50 PO; +PANT1TAB3 PO; +PANT40TA PO; +PENT100C6 PO; +TIZA2CAP PO; +TIZA4CAP PO; +VNTHFA/IN INH
[2017-02-19 14:20] VITALS: BP 116/66; PULSE 88; TEMP 37.3; O2SAT 95
--- NOTE | 2017-02-19 16:00 | Radiation Oncology Follow-Up ---
Radiation Oncology Follow-Up Date of Visit Feb 19, 2017. Reason For Visit 6 month follow-up Radiation Completion Date 04/19/15 Diagnosis (1) Squamous cell carcinoma of anal skin Status: Resolved Onset Date: 01/20/2015 Stage: ll Permanent Comment: DIAGNOSIS: Anus, SCC, p16 positive, cT2N0, stage II Status post completion of combined radiation and chemotherapy. Radiation completed 04/19/2015 received 5400 cGy Last Edited By: Carolyn Rubin on Apr 28, 2015 10:30 History of Present Illness Ms. Pulido presented one year ago with anal discomfort including transient bleeding and discomfort with defecation. This continued to get worse and she did see her punch machine operator who ended up referring her to Dr. Hayes. Dr. Hayes evaluated the patient and recommended excision of the possible anal stricture. The patient was brought to the operating room on 01/20/2015. During his examination, he noted chronically inflamed tissue extending on the skin for the 9 to 12 o'clock position around the anus which extended into the anal canal. Biopsies were taken in came back positive for squamous cell carcinoma which is also p16 positive. Currently, staging scans are pending. The patient is also seen Dr. Otto Malhotra for medical oncology who is recommended consideration of pelvic chemoradiation therapy. Status post completion of combined radiation and chemotherapy. Radiation completed 04/19/2015 she received 5040 cGy. Interim History She continues to have ongoing issues with difficulty with bowel movements. She will have pain with passage of bowel movements. She is having small amount of rectal bleeding. She is previously tried fiber products that did not help. She was seen by . And underwent a colonoscopy 03/21/2016. There was removal of benign polyps. She was noted to have altered vascular, congested, glandular M hemorrhagic, polypoid-appearing mucosa at the anus. Pathology from the polyps showed a sessile serrated adenoma. This was at 30 cm. There was no dysplasia or carcinoma. A polyp was removed from 70 cm. This was also a sessile serrated adenoma. No carcinoma or dysplasia was seen. At the anal verge biopsies were taken showed mild edema mild chronic inflammation and hyperplasia. There was no dysplasia or carcinoma seen. Specimen [id number]. She have issues with ongoing dysuria. She was seen in urology and is being followed by Dr. Thorpe and Betsy Keyes. She is diagnosed with radiation cystitis. She is undergoing treatments with bladder instillations. She stated as of now continues to be continued dysuria she has not yet noted a change in discomfort with the treatment. She was concerned about an MRI finding. She previously had an MRI for dizziness in September of this past year. This showed a meningioma. I explained to her that this is a benign neoplasm. This has not changed in size since 2010. This will continue to be followed and does not require any type of management this time. Allergies Coded Allergies: Levetiracetam (Verified Allergy, Mild, RASH/HIVES, 05/17/16) Carbamazepine (Verified Allergy, Unknown, HIVES, 05/17/16) Codeine (Verified Allergy, Unknown, UNKNOWN, 05/17/16) Morphine (Verified Allergy, Unknown, DIZZINESS, 05/17/16) Home Medications Scheduled Atorvastatin (Lipitor), 40 MG PO HS Duloxetine Hcl (Cymbalta), 1 CAP PO DAILY Lacosamide (Vimpat), 1 TAB PO QAM Lacosamide (Vimpat), 1 TAB PO HS Pantoprazole (Protonix), 1 TAB PO DAILY Pentosan Polysulfate Sodium (Elmiron), 100 MG PO TIDM Scheduled PRN Albuterol (Ventolin), 1-2 PUFFS INH Q4H PRN for Shortness of Breath Clonazepam (Clonazepam), 0.5 MG PO QAM PRN for SHAKING Furosemide (Lasix), 1 TAB PO DAILY PRN for UNDECIDED Ondansetron Hcl (Zofran), 1 TAB PO Q6H PRN for Nausea Oxycodone Hcl (Oxycontin), 20 MG PO Q12 PRN for Pain Oxycodone/Acetaminophen 10MG/325MG (Percocet 10MG/325MG), 1 TAB PO TID PRN for Pain Tizanidine (Zanaflex), 2 MG PO TID PRN for Muscle Spasms Review of Systems Gastrointestinal: Symptoms: WNL, Rectal Bleeding GI Comments: Mostly formed stools, but consistency can vary; Oral: Symptoms: No Problems Respiratory: Symptoms: SOB With Exertion Other Respiratory: SOB w/exertion - no change Urinary: Symptoms: Incontinence Comments: see below notations Skin: Symptoms: No Problems Other Skin Symptoms: Reports no skin irritation in periarea any longer; Physical Exam Vital Signs Date Time Temp Pulse Resp B/P (MAP) Pulse Ox O2 Delivery O2 Flow Rate FiO2 02/19/17 14:20 37.3 88 16 116/66 95 Fatigue: None General Appearance: no apparent distress Eyes: normal inspection, EOMI ENT: normal ENT inspection, hearing grossly normal Respiratory/Chest: lungs clear, no respiratory distress, no accessory muscle use Cardiovascular: regular rate, rhythm, no gallop, no murmur Abdomen: non tender, soft Neurologic/Psychiatric: no motor/sensory deficits, alert, normal mood/affect Skin: warm/dry Pain Management Patient Reports Pain: Yes Pain Management Plan She has chronic back pain. She is seen and treated at the pain clinic. Laboratory Laboratory Results: not applicable Pathology Pathology Results: were reviewed Pathology Comments Reviewed in the interim history Imaging Imaging Studies: not applicable Assessment & Plan Plan: She was also seen today by Dr. Malhotra. The episodes of bright red rectal bleeding were discussed. It is recommended that she follow-up with Dr. Hayes and she has agreed to do this; she will call us if she any issues following up with either general surgery or gastroenterology. She'll continue follow-up with urology. She is going to continue the bladder instillations area we asked her to return to our office in 6 months. She will call if she has any questions or concerns in the interim. I recommended that she increase fiber in the diet to help with the issues of discomfort with bowel movements. The field contractor repeat describes an area of tissue at the anus with inflammation and this was seen on the path report. Last Dr. Hayes for his opinion and recommendation. Assessment & Plan (Attending) ADDENDUM: I agree with note created by Carolyn Rubin PA-C. I reviewed the patient's chart and information with her. I have examined and evaluated the patient. I reviewed relevant clinical information and answered the patient's and /or family's questions. QUALITY ASSURANCE SUPERVISOR BODY Total Time In Follow-Up I spent 20 minutes speaking to the patient performing examination. I sent 15 minutes reviewing information in completing this note. AK Total Time (Attending) In Follow-Up I spent 15 minutes examining and counseling the patient. QUALITY ASSURANCE SUPERVISOR BODY Copy To Otto Malhotra M.D.; Domingo Hayes M.D.; Kimmy Tenorio MD
== END | disposition home or self-care (01) ==
LOC: C.ONC 13:46
PROVIDERS: ATTEND Physician Assistant Medical
DX: Z08 Encounter for follow-up examination after completed treatment for malignant neoplasm (principal); Z92.3 Personal history of irradiation; Z85.828 Personal history of other malignant neoplasm of skin

== ENCOUNTER → 2017-03-05 | Outpatient (CLI) | payer OTHER ==
[~2017-03-05] MED LIST changes: -CYCL5TAB PO; -ESCI1TAB10 PO; -LYR50 PO; -METH500T37 PO; -MILN50TA PO; -OMEP20CA9 PO; -OXYC15TA89 PO; -PANT40TA PO; -TIZA4CAP PO; -TROS1CAP2 PO; -VNTHFA/IN INH
[2017-03-05 16:51] LABS: BASO % 0.6 %; BASO ABS # 0.05 K/uL (0-0.2); EOS ABS # 0.09 K/uL (0-0.5); HEMATOCRIT 42.8 % (37-47); HEMOGLOBIN 14.6 g/dL (12.0-16.0); IG# 0.01 K/uL (0.00-0.02); LYMPH % 23.6 %; LYMPH ABS # 2.03 K/uL (1.2-3.4); MEAN CELL VOLUME 89.5 fL (80-100); MEAN CORPUSCULAR HEMOGLOBIN 30.5 pg (25-34); MEAN CORPUSCULAR HGB CONC 34.1 g/dl (32-36); MONO % 16.4 %; MONO ABS # 1.41 K/uL (0.11-0.59); NEUT % 58.3 %; NEUT ABS # 5.02 K/uL (1.4-6.5); PLATELET COUNT 263 K/uL (130-400); RED CELL DISTRIBUTION WIDTH CV 13.6 % (11.5-14.5); RED CELL DISTRIBUTION WIDTH SD 44.8 fL (36.4-46.3); WHITE BLOOD COUNT 8.61 K/uL (4.8-10.8)
[2017-03-05 17:09] LABS: ALBUMIN 3.8 gm/dl (3.4-5.0); ALT/SGPT 42 U/L (12-78); BLOOD UREA NITROGEN 19 mg/dl (7-18); CALCIUM 9.8 mg/dl (8.5-10.1); CARBON DIOXIDE 27 mmol/L (21-32); CREATININE 0.84 mg/dl (0.60-1.20); GLUCOSE 98 mg/dl (70-99); POTASSIUM 3.9 mmol/L (3.5-5.1); SODIUM 139 mmol/L (136-145)
[2017-03-05 17:12] LABS: ALKALINE PHOSPHATASE 94 U/L (45-117); AST/SGOT 12 U/L (15-37); TOTAL PROTEIN 7.6 gm/dl (6.4-8.2)
== END | disposition home or self-care (01) ==
LOC: C.LAB 16:14
PROVIDERS: ATTEND Neuromusculoskeletal Medicine & OMM
DX: C20 Malignant neoplasm of rectum (principal); R42 Dizziness and giddiness; R25.2 Cramp and spasm

== ENCOUNTER → 2017-03-07 | Outpatient (CLI) | payer OTHER ==
[~2017-03-07] MED LIST changes: +MILN50TA PO; +PANT40TA PO; +TIZA4CAP PO; +VNTHFA/IN INH
--- NOTE | 2017-03-07 09:41 | DIAGNOSTIC IMAGING REPORT ---
HEAD WITHOUT CONTRAST (CT) CT DOSE: 537.48 mGy.cm HISTORY: Mental status change C20 Primary cancer of [id number] Muscle cram TECHNIQUE: Multiaxial CT images of the head were performed without the use of intravenous contrast. A dose lowering technique was utilized adhering to the principles of ALARA. Comparison: MRI brain 10/02/2016 Findings: The paranasal sinuses and mastoid air cells are clear. The calvarium and skull base are intact. The ventricles and sulci are within normal limits. There is no mass, hematoma, midline shift, or acute infarct. Calcified meningioma left parietal convexity is unchanged. No evidence for acute intracranial hemorrhage. Mild stable cerebellar atrophy. Impression: No acute intracranial abnormality. Chronic changes as noted The above report was generated using voice recognition software. It may contain grammatical, syntax or spelling errors. Electronically signed by: Kalyan Stover M.D. 03/07/2017 9:39 AM Dictated Date/Time: 03/07/2017 9:38 AM
== END | disposition home or self-care (01) ==
LOC: C.CTS 09:07
PROVIDERS: ATTEND Neuromusculoskeletal Medicine & OMM
DX: C20 Malignant neoplasm of rectum (principal); R25.2 Cramp and spasm; R42 Dizziness and giddiness

== ENCOUNTER → 2017-03-21 | Day surgery (SDC) | payer OTHER ==
[2017-03-11 10:04] VITALS: BMI 36.0
[~2017-03-21] VITALS: Ht 175.3 cm; Wt 113.6 kg
[~2017-03-21] MED LIST changes: -ALBUAER2 INH; -DULO60CA44 PO; -LACO100T PO; +LIDOCAINE HCL 2% 2 ML VIAL (20MG/ML) ONE; -LPT/40 PO; -OXYC20TA50 PO; -PANT1TAB3 PO; +PROPOFOL IV EMULSION 10 MG/ML 20 ML VIAL IV ONE; +SODIUM CHLORIDE 0.9% 500ML 500 ML IV ONE; -TIZA2CAP PO
--- NOTE | 2017-03-21 12:58 | Endo History and Physical ---
History & Physical Date of Service: Mar 21, 2017. Chief Complaint: Referring Physician: History of Present Illness screening Past Medical History Arthritis, Reflux, Seizure Disorder, Cancer, High Cholesterol Past Surgical History Hx Cardiac Surgery: No Hx Internal Defibrillator: No Hx Pacemaker: No Hx Abdominal Surgery: No Hx of Implantable Prosthesis: No Hx Post-Op Nausea and Vomiting: No Hx Cancer Surgery: Yes (CARCINOMA REMOVAL FROM ANUS) Hx Thoracic Surgery: No Hx Orthopedic: No Hx Urinary Tract Surgery: No Family History None Social History Smoking Status: Current Every Day Smoker Hx Substance Use: Yes (SEE MED LIST) Hx Alcohol Use: No Allergies Coded Allergies: Levetiracetam (Verified Allergy, Mild, RASH/HIVES, 03/21/17) Carbamazepine (Verified Allergy, Unknown, HIVES, 03/21/17) Morphine (Verified Allergy, Unknown, DIZZINESS, 03/21/17) Current Medications Reported Home Medications Medications Dose Route/Sig Max Daily Dose Days Date Category Dose Instructions Vimpat (Lacosamide) 200 Mg Tab 1 Tab PO BID 03/11/17 Reported Ventolin Hfa (Albuterol) 200 Puffs/69386 Mcg Aers 2-4 Puffs INH Q6H PRN 03/11/17 Reported Zanaflex (Tizanidine HCl) 4 Mg Cap 4 Mg PO TID PRN 03/11/17 Reported Protonix (Pantoprazole Sodium) 40 Mg Tab 40 Mg PO QAM 03/11/17 Reported Savella (Milnacipran Hcl) 50 Mg Tab 1 Tab PO DIRECTED 30 03/11/17 Reported STARTER PACK Lasix (Furosemide) 20 Mg Tab 1 Tab PO DAILY PRN 90 02/19/17 Reported Elmiron (Pentosan Polysulfate Sodium) 100 Mg Cap 100 Mg PO TIDM 02/19/17 Reported Zofran (Ondansetron Hcl) 4 Mg Tab 1 Tab PO Q6H PRN 02/19/17 Reported Percocet 10MG/325MG (Oxycodone/Acetaminophen) Tab 1 Tab PO QID 03/19/16 Reported Clonazepam 0.5 Mg Tab 0.5 Mg PO QAM PRN 12/26/14 Reported Vital Signs Weight (Kilograms): 113.64 Height (Feet): 5 Height (Inches): 9.5 Physical Exam General Appearance: WD/WN, no apparent distress Respiratory/Chest: Auscultation: breath sounds normal Cardiovascular: Heart Auscultation: RRR Abdomen: Bowel Sounds: normal Inspection & Palpation: soft, non-distended, no tenderness, guarding & rebound Assessment and Plan colon screening
[2017-03-21 13:00] VITALS: Ht 175.3 cm; Wt 113.6 kg
[2017-03-21 13:09] VITALS: TEMP 36.6
--- NOTE | 2017-03-21 14:28 | Discharge Instructions ---
Endoscopy Patient Instructions Date / Procedure(s) Performed Mar 21, 2017. Colonoscopy Allergy Information Coded Allergies: Levetiracetam (Verified Allergy, Mild, RASH/HIVES, 03/21/17) Carbamazepine (Verified Allergy, Unknown, HIVES, 03/21/17) Morphine (Verified Allergy, Unknown, DIZZINESS, 03/21/17) Discharge Date / Findings Mar 21, 2017. colon polyp removed/clipped colon biopsies Medication Instructions Restart Stopped Medication(s): Reported Home Medications Medications Dose Route/Sig Max Daily Dose Days Date Category Dose Instructions Vimpat (Lacosamide) 200 Mg Tab 1 Tab PO BID 03/11/17 Reported Ventolin Hfa (Albuterol) 200 Puffs/03661 Mcg Aers 2-4 Puffs INH Q6H PRN 03/11/17 Reported Zanaflex (Tizanidine HCl) 4 Mg Cap 4 Mg PO TID PRN 03/11/17 Reported Protonix (Pantoprazole Sodium) 40 Mg Tab 40 Mg PO QAM 03/11/17 Reported Savella (Milnacipran Hcl) 50 Mg Tab 1 Tab PO DIRECTED 30 03/11/17 Reported STARTER PACK Lasix (Furosemide) 20 Mg Tab 1 Tab PO DAILY PRN 90 02/19/17 Reported Elmiron (Pentosan Polysulfate Sodium) 100 Mg Cap 100 Mg PO TIDM 02/19/17 Reported Zofran (Ondansetron Hcl) 4 Mg Tab 1 Tab PO Q6H PRN 02/19/17 Reported Percocet 10MG/325MG (Oxycodone/Acetaminophen) Tab 1 Tab PO QID 03/19/16 Reported Clonazepam 0.5 Mg Tab 0.5 Mg PO QAM PRN 12/26/14 Reported Reported Home Medications Medications Dose Route/Sig Max Daily Dose Days Date Category Dose Instructions Vimpat (Lacosamide) 200 Mg Tab 1 Tab PO BID 03/11/17 Reported Ventolin Hfa (Albuterol) 200 Puffs/72961 Mcg Aers 2-4 Puffs INH Q6H PRN 03/11/17 Reported Zanaflex (Tizanidine HCl) 4 Mg Cap 4 Mg PO TID PRN 03/11/17 Reported Protonix (Pantoprazole Sodium) 40 Mg Tab 40 Mg PO QAM 03/11/17 Reported Savella (Milnacipran Hcl) 50 Mg Tab 1 Tab PO DIRECTED 30 03/11/17 Reported STARTER PACK Lasix (Furosemide) 20 Mg Tab 1 Tab PO DAILY PRN 90 02/19/17 Reported Elmiron (Pentosan Polysulfate Sodium) 100 Mg Cap 100 Mg PO TIDM 02/19/17 Reported Zofran (Ondansetron Hcl) 4 Mg Tab 1 Tab PO Q6H PRN 02/19/17 Reported Percocet 10MG/325MG (Oxycodone/Acetaminophen) Tab 1 Tab PO QID 03/19/16 Reported Clonazepam 0.5 Mg Tab 0.5 Mg PO QAM PRN 12/26/14 Reported Provider Instructions Activity Restrictions - No exercising or heavy lifting for 24 hours. - Do not drink alcohol the day of the procedure. - Do not drive a car or operate machinery until the day after the procedure. - Do not make any important decisions or sign important papers in 24 hours after the procedure. Following Day: - Return to full activity which may include returning to work/school. Diet Start your diet with liquids and light foods (jello, soup, juice, toast). Then eat your usual diet if not nauseated. Treatment For Common After Affects For mild abdominal pain, bloating, or excessive gas: - Rest - Eat lightly - Lie on right side Follow-Up Information Follow-up with DR PEREIRA as scheduled Anesthesia Information What You Should Know You have had a procedure that required some medicine to reduce anxiety and discomfort. This treatment is called moderate sedation. After receiving the treatment, you may be sleepy, but you will be able to breathe on your own. The effects of the treatment may last for several hours. Follow these instructions along with Activity/Diet recommendations noted above: * Do NOT do anything where dizziness or clumsiness would be dangerous. * Rest quietly at home today, then you can be up and about tomorrow. * Have a responsible person stay with you the rest of today. * You may have had an I.V. today. If so, you may take the dressing off later today. Recommendations Call your doctor if: * Trouble breathing * Continuous vomiting for more than 24 hours * Temperature above 101 degrees * Severe abdominal pain or bloating * Pain not relieved by pain medicine ordered * There is increased drainage or redness from any incision * A large amount of rectal bleeding greater than 2-3 tablespoons. (If you had a polyp/s removed or have hemorrhoids, a small amount of blood - from the rectum is to be expected.) * You have any unanswered questions or concerns. IN THE EVENT OF A SERIOUS EMERGENCY, GO TO THE NEAREST EMERGENCY ROOM Your discharge instructions were prepared by provider Ck Dillard. Patient Instructions Signature Page Aimee Pulido Patient (or Guardian) Signature/Date: I have read and understand the instructions given to me by my caregivers. Caregiver/RN/Doctor Signature/Date: The above-named patient and/or guardian has received patient instructions on this date. + Original Patient Signature Page (only) stays with chart. Please make copy for patient.
--- NOTE | 2017-03-21 14:35 | GI REPORT ---
Procedure Date: 03/21/2017 1:39 PM Procedure: Colonoscopy Indications: Personal history of malignant rectal neoplasm, Post surgical follow-up, Hx squamous anal CA; recent rectal bleeding; Medicines: Propofol per Anesthesia Complications: No immediate complications. Estimated blood loss: Minimal. Estimated Blood Loss: Estimated blood loss was minimal. Procedure: Pre-Anesthesia Assessment: - Prior to the procedure, a History and Physical was performed, and patient medications and allergies were reviewed. The patient's tolerance of previous anesthesia was also reviewed. The risks and benefits of the procedure and the sedation options and risks were discussed with the patient. All questions were answered, and informed consent was obtained. Prior Anticoagulants: The patient has taken no previous anticoagulant or antiplatelet agents. ASA Grade Assessment: III - A patient with severe systemic disease. After reviewing the risks and benefits, the patient was deemed in satisfactory condition to undergo the procedure. After I obtained informed consent, the scope was passed under direct vision. Throughout the procedure, the patient's blood pressure, pulse, and oxygen saturations were monitored continuously. The scope was introduced through the anus and advanced to the terminal ileum, with identification of the appendiceal orifice and IC valve. The colonoscopy was performed without difficulty. The patient tolerated the procedure well. The quality of the bowel preparation was good. Findings: The perianal and digital rectal examinations were normal. Pertinent negatives include normal sphincter tone, no palpable rectal lesions and no anal lesion or abnormality was detected. A 10 mm polyp was found at 80 cm proximal to the anus. The polyp was sessile. The polyp was removed with a hot snare. Resection and retrieval were complete. To prevent bleeding after the polypectomy, one hemostatic clip was successfully placed (MR conditional). There was no bleeding during, or at the end, of the procedure. The exam was otherwise without abnormality. The terminal ileum appeared normal. An area of mildly congested mucosa was found at the anus and from 0 to 4 cm proximal to the anus. This was biopsied with a cold forceps for histology. Estimated blood loss was minimal. Verification of patient identification for the specimen was done by the physician and can technician using the patient's name and medical record number. Impression: - One 10 mm polyp at 80 cm proximal to the anus, removed with a hot snare. Resected and retrieved. Clip (MR conditional) was placed. - The examination was otherwise normal. - The examined portion of the ileum was normal. - Congested mucosa at the anus and from 0 to 4 cm proximal to the anus. Biopsied. Recommendation: - Discharge patient to home (ambulatory). - Resume regular diet. - Continue present medications. - Await pathology results. - Return to referring physician as previously scheduled. MD Ck Taylor MD 03/21/2017 2:35:23 PM This report has been signed electronically. Note Initiated On: 03/21/2017 1:39 PM I attest to the content of the Intraoperative Record and orders documented therein, exceptions below
--- NOTE | 2017-03-21 14:39 | Anesthesiology Progress Note ---
Anesthesia Post Op Note Date & Time Mar 21, 2017 at 14:38 Vital Signs Pain Intensity: 0 Vital Signs Past 12 Hours Date Time Temp Pulse Resp B/P (MAP) Pulse Ox O2 Delivery O2 Flow Rate FiO2 03/21/17 13:09 36.6 90 20 140/107 (118) 97 Room Air Notes Mental Status: alert / awake / arousable, participated in evaluation Pt Amnestic to Procedure: Yes Nausea / Vomiting: adequately controlled Pain: adequately controlled Airway Patency, RR, SpO2: stable & adequate BP & HR: stable & adequate Hydration State: stable & adequate Anesthetic Complications: no major complications apparent The patient is awake and her vitals are stable.
[2017-03-21 14:57] VITALS: BP 130/74; PULSE 80; O2SAT 97
== END | disposition home or self-care (01) ==
LOC: C.GI 12:46
PROVIDERS: ATTEND Internal Medicine Gastroenterology
DX: Z09 Encounter for follow-up examination after completed treatment for conditions other than malignant neoplasm (principal); K62.5 Hemorrhage of anus and rectum; D12.6 Benign neoplasm of colon, unspecified; Z85.048 Personal history of other malignant neoplasm of rectum, rectosigmoid junction, and anus; J45.909 Unspecified asthma, uncomplicated; E66.9 Obesity, unspecified; F17.200 Nicotine dependence, unspecified, uncomplicated; Z88.5 Allergy status to narcotic agent; Z98.890 Other specified postprocedural states

== ENCOUNTER → 2017-03-27 | Outpatient (CLI) | payer OTHER ==
[~2017-03-27] MED LIST changes: -LIDOCAINE HCL 2% 2 ML VIAL (20MG/ML) ONE; -PROPOFOL IV EMULSION 10 MG/ML 20 ML VIAL IV ONE; -SODIUM CHLORIDE 0.9% 500ML 500 ML IV ONE
== END | disposition home or self-care (01) ==
LOC: C.LAB 08:55
PROVIDERS: ATTEND Psychiatry & Neurology Neurology
DX: Z51.81 Encounter for therapeutic drug level monitoring (principal); Z79.899 Other long term (current) drug therapy

== ENCOUNTER → 2017-04-28 | Outpatient (CLI) | payer OTHER ==
--- NOTE | 2017-04-28 13:25 | DIAGNOSTIC IMAGING REPORT ---
THORACIC SPINE 3 VIEWS ROUTINE, L-SPINE FLEX/EXT BENDING MIN 6 HISTORY: 46 years-old Female M51.36,M54.16,M54.5,M54.6 acute low back pain COMPARISON: Lumbar spine MRI 08/02/2015 TECHNIQUE: 3 views of the thoracic spine with 5 standard lumbar views with additional flexion and extension lateral views. FINDINGS: THORACIC: Right internal jugular Prrttx-t-Adia catheter terminates in the region of the right atrium. There is no acute fracture or subluxation. Mild multilevel endplate spurring and intervertebral disc space narrowing is noted. Imaged lung stevenson appear clear. LUMBAR: There are 5 nonrib-bearing lumbar type vertebral segments present. No spondylolysis or spondylolisthesis. Mild multilevel endplate spurring and facet arthrosis. Mild intervertebral disc space narrowing at T12-L1 and L1-L2. There is 3 mm anterolisthesis L4 on L5 which persists on the neutral, flexion and extension views. Additionally, there is 3 mm retrolisthesis L1 on L2 which is unchanged on all the images. IMPRESSION: 1. Degenerative changes as above without evidence of acute fracture. 2. 3 mm retrolisthesis L1 on L2 and 3 mm anterolisthesis L4 on L5 is unchanged on the neutral, flexion and extension views. No evidence of instability on these images. The above report was generated using voice recognition software. It may contain grammatical, syntax or spelling errors. Electronically signed by: Pedrito Johnson M.D. 04/28/2017 1:24 PM Dictated Date/Time: 04/28/2017 1:18 PM
== END | disposition home or self-care (01) ==
LOC: C.RAD 12:19
PROVIDERS: ATTEND Nurse Practitioner Family
DX: M51.36 Other intervertebral disc degeneration, lumbar region (principal); M54.16 Radiculopathy, lumbar region; M54.6 Pain in thoracic spine

== ENCOUNTER → 2017-04-29 | Outpatient (CLI) | payer OTHER ==
--- NOTE | 2017-04-30 14:13 | MAMMOGRAPHY REPORT ---
BILATERAL DIGITAL SCREENING MAMMOGRAM TOMOSYNTHESIS WITH CAD: 04/29/2017 CLINICAL HISTORY: Routine screening. TECHNIQUE: Breast tomosynthesis in addition to standard 2D mammography was performed. Current study was also evaluated with a Computer Aided Detection (CAD) system. COMPARISON: Comparison is made to exams dated: 11/28/2015 mammogram, 05/04/2015 ultrasound, 05/04/2015 mammogram, 03/16/2015 ultrasound, 09/23/2014 mammogram, and 03/19/2013 mammogram - [facility]. BREAST COMPOSITION: There are scattered areas of fibroglandular density in both breasts. FINDINGS: No suspicious masses, calcifications, or areas of architectural distortion are noted in ei ther breast. There has been no significant interval change compared to prior exams. There are new po st surgical changes in the left anterior breast from interval surgical excision. Nodular asymmetry i n the right retroareolar breast middle depth on the CC view is stable compared to multiple prior exam s. Scattered bilateral benign-appearing calcifications are not significantly changed. IMPRESSION: ACR BI-RADS CATEGORY 2: BENIGN There is no mammographic evidence of malignancy. A 1 year screening mammogram is recommended. The pa tient will receive written notification of the results. Approximately 10% of breast cancers are not detected with mammography. A negative mammographic report should not delay biopsy if a clinically suggestive mass is present. Josie Andrade M.D. ah/:04/29/2017 14:49:48 Excel Vba Developer: Emmie MORRIS(Ishaan)(M), [facility] letter sent: Normal 1/2 BI-RADS Code: ACR BI-RADS Category 2: Benign
== END | disposition home or self-care (01) ==
LOC: C.MAMM 08:55
PROVIDERS: ATTEND Surgery
DX: Z12.31 Encounter for screening mammogram for malignant neoplasm of breast (principal)

== ENCOUNTER 2018-11-18 08:01 | Observation (INO) ==
--- NOTE | 2018-11-12 16:48 | Anesthesiology Consultation ---
Date of Service November 12, 2018 Assessment & Plan Chart Review Chart Review: Acceptable Risk for Surgery and Patient NOT seen in Pre Admission Testing Consults Requested none ASA ASA3 Proposed Anesthesia Anesthesia Type: General Regional Regional Laterality: Left Site: Interscalene History Surgery Operation Date: 11/18/18 12:50 Proposed Procedures p Left Shoulder Arthroscopy with Subacromial Decompression, Rotator Cuff Repair, Possible Distal Clavicle Excision - Mejia Cary MD Height/Weight Height: 5 ft 9.5 in Weight: 115.212 kg Allergies Allergy/AdvReac Type Severity Reaction Status Date / Time carbamazepine Allergy Unknown HIVES Verified 10/30/18 09:34 levetiracetam Allergy Unknown RASH/HIVES Verified 10/30/18 09:34 ibuprofen AdvReac Unknown see notes Verified 10/30/18 09:34 below morphine AdvReac Unknown DIZZINESS Verified 10/30/18 09:34 Codeine Derivatives Allergy Unknown PT UNSURE Uncoded 10/30/18 09:34 Medications Home Medications Medication Instructions Recorded Confirmed Last Taken atorvastatin 40 mg tablet 40 mg PO QPM 02/17/18 10/30/18 Unknown lacosamide [Vimpat] 200 mg PO BID 07/22/18 10/30/18 07/22/18 meclizine 25 mg tablet See Rx Instructions .ROUTE 07/23/18 10/30/18 Unknown .COMPLEX #30 tablet diclofenac 1 % topical gel 2 gm TOP UD PRN 10/05/18 10/30/18 Unknown methocarbamol 500 mg tablet 1,000 mg PO TID PRN tab 10/05/18 10/30/18 Unknown pantoprazole 40 mg tablet,delayed 40 mg PO HS 10/05/18 10/30/18 Unknown release lamotrigine 100 mg tablet 100 mg PO BID 30 Days #60 tab 10/13/18 10/30/18 Unknown escitalopram 10 mg tablet 10 mg PO DAILY #30 tab 10/23/18 10/26/18 Unknown furosemide 20 mg PO UD PRN 10/26/18 10/30/18 Unknown hydrocodone-acetaminophen 1 tab PO UD PRN 10/26/18 10/30/18 Unknown albuterol sulfate HFA 90 2 puffs INH Q6H PRN #18 gm 10/30/18 10/30/18 Unknown mcg/actuation aerosol inhaler benzonatate 100 mg capsule See Rx Instructions PO TID PRN #30 10/30/18 10/30/18 Unknown cap guaifenesin ER 600 mg tablet, 600 mg PO BID PRN #30 tab 10/30/18 10/30/18 Unknown extended release 12 hr Past Medical History Medical History Epilepsy (Chronic) DR HEADLEY/LAST SEIZURE: YEARS AGO Acid reflux Back pain LOWER BACK PROBLEM Bladder problem D/T CHEMO / OVERACTIVE SYMPTOMS Depression History of high cholesterol History of rectal cancer HX RADIATION & CHEMO TX FOR History of stomach ulcers Obesity (BMI 35.0-39.9 without comorbidity) SOB (shortness of breath) on exertion WITH STAIRS, PT BELIEVES DUE TO WEIGHT GAIN / DENIES CP Exercise / Class Metabolic Activity III < 4 Walking/Shop/Light housework Past Family History Family History Mother Diabetes Hypertension Grandmother Hypertension Father Rheumatoid arthritis Uncle Colon cancer Other Alcohol abuse Past Surgical History Surgical History History of colonoscopy History of endoscopic gastrointestinal surgery History of rectal surgery Hx of breast surgery NIPPLE REMOVED/LEFT Surgical history of tubal ligation Past Anesthesia History No Hx of Anesthesia Complications and No Family Hx of Anesthesia Complications History of PONV No Hx of PONV and No Hx of Motion Sickness Social History Smoking Status: Former smoker tobacco type: cigarettes Do You Dip or Chew Tobacco: No Smoking End Date: 8 DAYS AGO - .5PPD OFF AND ON 20 YRS Hx Alcohol Use: No Hx Substance Use: No substance use type: prescription drug Testing Electrocardiogram Date: 11/09/18 (SR w/premature SVC's at 94) Chest X-Ray Date: 11/09/18 Findings: + NAD
--- NOTE | 2018-11-17 20:48 | History and Physical Report ---
DATE OF ADMISSION: 11/18/2018 CHIEF COMPLAINT: Chronic left shoulder pain. HISTORY OF PRESENT ILLNESS: This is a 47-year-old female patient of Dr. Fisher, complaining of chronic left shoulder pain, longstanding, now progressively getting worse. The patient failed conservative treatment and was diagnosed with a rotator cuff tear, impingement and AC arthritis per MRI and wished to proceed with a left arthroscopic rotator cuff repair, subacromial decompression, possible distal clavicle excision. PAST MEDICAL HISTORY: Anxiety, depression, seizures, upper back problems, sciatica, acid reflux, obesity, dental issues, breast cancer. SOCIAL HISTORY: Nonsmoker, occasional drinker. PAST SURGICAL HISTORY: Left breast surgery, port placement in her left chest area. FAMILY HISTORY: Noncontributory. REVIEW OF SYSTEMS: Chronic left shoulder pain and weakness. Otherwise, denies any shortness of breath, chest pain, nausea, vomiting or other joint complaints. MEDICATIONS: 1. Protonix 40 mg daily. 2. Atorvastatin 40 mg daily. 3. Meclizine 25 mg daily. 4. Diclofenac 1% topical gel 4 times to affected area. 5. Methocarbamol 500 mg 2 tablets 3 times daily. 6. Lamictal 100 mg twice daily. 7. Vimpat 200 mg twice daily. 8. Celebrex 200 mg daily. 9. Hydrocodone as needed until surgery. ALLERGIES: INCLUDE CODEINE, WHICH CAUSES HIVES; MORPHINE, WHICH CAUSES DIZZINESS. PHYSICAL EXAMINATION: GENERAL: Well-developed, well-nourished, 47-year-old female in no acute distress. She is alert and oriented x3 and pleasant. HEENT: Normocephalic, atraumatic. Extraocular motions are intact. Pupils are equal and reactive to light. HEART: Regular rate and rhythm, no murmurs are appreciated. LUNGS: Clear with decreased sounds. ABDOMEN: Soft and nontender. Bowel sounds present. EXTREMITIES: Left shoulder reveals a limited range of motion of 0-45 degrees actively, passively to 140 degrees. She has 3+/4 strength globally. NEUROLOGIC: Neurovascularly, she is intact in her left upper extremity. DIAGNOSES: Left shoulder impingement, rotator cuff tear and acromioclavicular arthritis with a history of anxiety, depression, seizure disorder, upper back problems, sciatica, acid reflux, obesity, dental issues, breast cancer, hyperlipidemia. PLAN: The patient was advised of her diagnosis. Indications, risks, benefits, postop course have all been reviewed. The patient wished to proceed with a left arthroscopic subacromial decompression, rotator cuff repair and possible distal clavicle excision. Necessary consent forms, preoperative testing and clearances will be obtained.
[~2018-11-18 08:01] MED LIST changes: +BUPIVACAINE 0.25% 30 ML VIAL ONE; +CEFAZOLIN 2000MG 2,000 MG/15 ML SYR IV SCH; +EPINEPHrine INJ 1 MG/ML AMP ONE; -FURO-85 PO; -KLN5X PO; -LACO200T PO; +LR 15ML/HR IV SCH; +MIDAZOLAM HCL 1 MG/ML 2ML VIAL ONE; -MILN50TA PO; -ONDA4TAB65 PO; -OXYC-106 PO; -PANT40TA PO; -PENT100C6 PO; -TIZA4CAP PO; -VNTHFA/IN INH; +fentaNYL citrate 100 MCG/2 ML VIAL ONE
--- NOTE | 2018-11-18 08:38 | History & Physical Bridge Note ---
Date of Service November 18, 2018 History & Physical Bridge Note I have examined the patient, reviewed the History & Physical and in the interval since the performance of the History & Physical I have noted the following changes of clinical significance: no changes noted
[2018-11-18] MEDS ORDERED: EPINEPHrine HCL INJ 1 MG/ML 30ML ONE (09:41)
[2018-11-18] MEDS ORDERED: ePHEDrine sulfate 50 MG/ML AMP IV PRN (09:51)
[2018-11-18] MEDS ORDERED: ATROPINE SULFATE 0.1 MG/ML 10ML SYR IV PRN (09:51)
[2018-11-18] MEDS ORDERED: ONDANSETRON INJ 2 MG/ML 2 ML VIAL IV PRN ×2 (09:51→14:17)
[2018-11-18] MEDS ORDERED: DEXAMETHASONE SOD INJ 4 MG/ML VIAL ONE ×2 (10:26)
[2018-11-18] MEDS ORDERED: ONDANSETRON INJ 2 MG/ML 2 ML VIAL ONE ×2 (10:26)
[2018-11-18] MEDS ORDERED: SUCCINYLCHOLINE CHLORIDE 20 MG/ML 10 ML VIAL ONE (10:26)
[2018-11-18] MEDS ORDERED: ROCURONIUM BROMIDE 10 MG/ML 5 ML VIAL ONE (10:26)
[2018-11-18] MEDS ORDERED: PROPOFOL IV EMULSION 10 MG/ML 20 ML VIAL IV ONE (10:26)
[2018-11-18] MEDS ORDERED: PHENYLEPHRINE 100MCG/ML 5ML SYR ONE (10:40)
[2018-11-18] MEDS ORDERED: GLYCOPYRROLATE 0.2 MG/ML VIAL ONE (10:56)
--- NOTE | 2018-11-18 12:33 | Post Operative Brief Note ---
Immediate Post Op Note v1 Date of Surgery November 18, 2018 Pre & Post Diagnosis Operation Date: 11/18/18 10:20 Pre-Op Diagnosis: Left Shoulder Impingement Syndrome, Rotator Cuff Tear, AC Joint Arthritis Post-Op Diagnosis: Left Shoulder Impingement Syndrome, AC Joint Arthritis, High Grade Partial Rotator Cuff Tear I personally identified the patient: Yes Procedure Operation Date: 11/18/18 10:20 Actual Procedures p Left Shoulder Arthroscopy with Subacromial Decompression, Rotator Cuff Repair, Distal Clavicle Excision(Left) - Mejia Cary MD Surgeon Mejia Cary MD Training Personnel Supervisor Kalyan MCKEON Estimated Blood Loss 5 Findings Consistent with Post-Op Diagnosis Specimens None Anesthesia Type General Regional Complications none Disposition Accompanied Patient To Recovery: No Overlapping Procedure I was immediately available: during the entire case.
[2018-11-18] MEDS: fentaNYL citrate 100 MCG/2 ML VIAL IV PRN ×5 (12:40→13:28)
--- NOTE | 2018-11-18 13:36 | Anesthesiology Progress Note ---
Date of Service November 18, 2018 Anesthesia Post Procedure Vital Signs Vital Signs: Temp Pulse Pulse Resp BP Pulse Ox 11/18/18 13:30 86 16 116/73 94 11/18/18 13:20 96 H 18 130/79 94 11/18/18 13:10 88 13 142/110 H 96 11/18/18 13:00 91 H 15 154/95 H 98 11/18/18 12:50 92 H 16 131/86 100 11/18/18 12:40 97 H 22 165/102 H 99 11/18/18 12:34 36.0 C L 99 H 28 H 159/107 H 100 11/18/18 08:42 36.8 C 70 20 147/79 H 96 Pain Intensity Left Shoulder: Pain Intensity: 6 Transfer of Care Handoff Completed per policy Notes Mental Status: alert / awake / arousable and participated in evaluation Patient Amnestic to Procedure: Yes Nausea / Vomiting: adequately controlled Pain: adequately controlled Airway Patency, RR, SpO2: stable & adequate BP & HR: stable & adequate Hydration State: stable & adequate Anesthetic Complications: no major complications apparent and Pt Satisfied with anesthetic care
[2018-11-18] MEDS ORDERED: HYDROmorphone INJ 0.5 MG/0.5 ML SYR IV PRN (14:17)
[2018-11-18] MEDS ORDERED: METOCLOPRAMIDE HCL INJ 5 MG/ML 2 ML VIAL IV PRN (14:17)
[2018-11-18] MEDS ORDERED: FUROSEMIDE 20 MG TAB PO PRN (14:17)
[2018-11-18] MEDS ORDERED: DICLOFENAC SOD 1% GEL 100 GM TUBE EXT PRN (14:17)
[2018-11-18] MEDS ORDERED: MAGNESIUM HYDROXIDE SUSP 30 ML UDC PO PRN (14:17)
[2018-11-18] MEDS ORDERED: guaiFENesin 600 MG TABCR PO PRN (14:17)
[2018-11-18] MEDS ORDERED: BENZONATATE 100 MG CAPSULE PO PRN (14:17)
[2018-11-18] MEDS ORDERED: NALOXONE HCL 0.4 MG/1 ML VIAL/CARP IV PRN (14:17)
[2018-11-18] MEDS ORDERED: bisacodyL 10 MG SUPP PR PRN (14:17)
[2018-11-18] MEDS ORDERED: METHOCARBAMOL 500 MG TABLET PO PRN (14:17)
[2018-11-18] MEDS ORDERED: ALBUTEROL HFA 8 GM INHALER INH PRN (14:17)
--- NOTE | 2018-11-18 17:08 | Operative Report ---
Post Operative Report Pre & Post Diagnosis Operation Date: 11/18/18 10:20 Pre-Op Diagnosis: Left Shoulder Impingement Syndrome, Rotator Cuff Tear, AC Joint Arthritis Post-Op Diagnosis: Left Shoulder Impingement Syndrome, AC Joint Arthritis, High Grade Partial Rotator Cuff Tear I personally identified the patient: Yes Procedure Operation Date: 11/18/18 10:20 Actual Procedures p Left Shoulder Arthroscopy with Subacromial Decompression, Rotator Cuff Repair, Distal Clavicle Excision(Left) - Mejia Cary MD Surgeon Mejia Cary MD Therapist'S Assistant Kalyan MCKEON Estimated Blood Loss 5 Findings Consistent with Post-Op Diagnosis Specimens none Drains none Anesthesia Type General Regional Complications none Disposition Accompanied Patient To Recovery: No Disposition: Recovery Room Indications 48-year-old female with left shoulder pain failed conservative management. Patient has a type II-III acromion with anterior acromial spur with moderate AC joint osteoarthritis. MRI demonstrates what appears to be a full-thickness rotator cuff tear supraspinatus. Description of Procedure The patient was to the operating room anesthetized under regional block and general anesthesia. The patient was positioned on the operating table in the 70 beachchair position on a [facility] shoulder table. All of the other extremities were well-padded. The left upper extremity was prepped and draped in the usual sterile fashion. Examination demonstrated good range of motion no instability. Patient did have an obese arm which did add to the technical difficulty of the surgery. Arthroscopy of the shoulder was performed via anterior and posterior arthroscopy portals. Posterior portal was placed in the soft spot and the anterior portal was placed in the rotator interval. Subsequent portals included lateral subacromial. The following findings were noted: The glenohumeral joint had 2 areas of delamination of the articular surface of the humeral head was anterior superior underlying the biceps and one was in the mid upper articular surface of the humeral head. The glenoid had normal articular surface the labrum was intact circumferentially there was negative peelback sign intact biceps anchor normal biceps tendon. There was some fraying of the intra-articular margin of the subscapularis with some minor tenosynovitis in the area. The posterior aspect of the supraspinatus at the anterior infraspinatus aspect had a high- grade partial tear with some exposed bone on the greater tuberosity and the depth of the tear was greater than 50% of the footprint. The subacromial space patient did have a prominent spur on the anterior inferior acromion which extended into the CA ligament but there was not fraying of the CA ligament. There was inferior spurs at the AC joint and there is one area grade 4 degenerative arthritis in the distal clavicle AC joint area and the remainder appeared to be grade 3 osteoarthritis. The bursal surface of the rotator cuff was completely intact.. Attention was first taken to debriding the lesions of the humeral head removing the delaminated edges and leaving the remainder of the surface intact. The footprint of the supraspinatus was debrided to get a healing bed of tissue for repair. Attention was then taken to the subacromial space which time the rotato r cuff was inspected carefully and there is no evidence of any full-thickness component to the tear. The bursa was resected. The bursa and periosteum on the undersurface of the acromion was ablated with the radiofrequency ablator and the CA ligament was released off the anterior acromion. The CA ligament was debrided back. A 5.5 bur was used to plane down the acromion to type I flat shape. A radio frequency ablator was used to ablate the undersurface of 1 cm of the distal clavicle ablating the inferior capsule. This exposed the spurs on the undersurface of the clavicle. A 5.5 bur was used to resect 1 cm distal clavicle using the eduarda through both the lateral and anterior portal. The superior and posterior capsule was preserved for stability. The arthroscope was placed back into the glenohumeral joint and an arthroscopic clear working cannula was placed in the anterior rotator interval area. The insertion device for the Q fix 2.8 mm suture anchor was penetrated through the rotator cuff and situated at the articular margin of the footprint of the supraspinatus posterior aspect. The regional airline pilot drill hole was made in the anchor was placed with good fixation. Used a Doppler shoe to push sutures more medially into the joints we could retreat him through the anterior cannula. A pasta type technique was used to repair the tendon. A spinal needle was used to percutaneously pass a PDS suture through the torn partial tear spanning the tear from anterior to posterior. Sutures were shuttled individually and retrieved in the subacromial space and then tied down in horizontal mattress fashion and the tails of the suture placed into 5.5 footprint anchor laterally. The repair was secure with passive range of motion was performed under no tension with the arm to side. The portal sites were closed with interrupted nylon sutures. Sterile dressings were applied and a sling immobilizer. The patient tolerated the procedure well. My physician medical claims assistant Kalyan MCKEON, assisted in arm positioning, instrument management, suture management when indicated, incision closure, sling application, and will participate in the postoperative care of the patient. I attest to the content of the Intraoperative Record and any orders documented therein. Any exceptions are noted below.
[2018-11-18] MEDS: OXYCODONE/ACETAMINOPHEN 5mg/325mg TAB PO PRN ×2 (19:13→23:34)
[2018-11-18] MEDS: SODIUM CHLORIDE 0.9% 1000ML 1,000 ML IV SCH (19:14)
[2018-11-18] MEDS: DOCUSATE SODIUM 100 MG CAP PO SCH (20:36)
[2018-11-18] MEDS: lamoTRIgine 100 MG TAB PO SCH (20:36)
[2018-11-18] MEDS: LACOSAMIDE 50 MG TABLET PO SCH (20:37)
[2018-11-18] MEDS ORDERED: PANTOprazole 40 MG TAB PO SCH (21:00)
[2018-11-18] MEDS ORDERED: SENNA 8.6 MG TAB PO SCH (21:00)
[2018-11-18] MEDS ORDERED: ATORVASTATIN 40 MG TAB PO SCH (21:00)
[2018-11-18] MEDS ORDERED: MECLIZINE HCL 25 MG TAB PO PRN (21:00)
[2018-11-19] MEDS: SODIUM CHLORIDE 0.9% 1000ML 1,000 ML IV SCH (05:28)
[2018-11-19 06:45] LABS: Basophils # (auto) 0.01 K/uL (0-0.2); Basophils % (auto) 0.1 %; Eosinophils # (auto) 0.01 K/uL (0-0.5); Eosinophils % (auto) 0.1 %; Hematocrit (blood only) 34.5 % (37-47); Hemoglobin 11.5 g/dL (12.0-16.0); Immature Granulocytes # (auto) 0.04 K/uL (0.00-0.02); Immature Granulocytes % (auto) 0.4 %; Lymphocytes # (auto) 2.11 K/uL (1.2-3.4); Lymphocytes % (auto) 22.1 %; Mean Corpuscular Hemoglobin 30.4 pg (25-34); Mean Corpuscular Hgb Conc 33.3 g/dL (32-36); Mean Corpuscular Volume 91.3 fL (80-100); Mean Platelet Volume 8.8 fL (7.4-10.4); Monocytes % (auto) 14.7 %; Neutrophils # (auto) 5.96 K/uL (1.4-6.5); Neutrophils % (auto) 62.6 %; Platelet Count 282 K/uL (130-400); RDW Standard Deviation 46.3 fL (36.4-46.3); Red Blood Count 3.78 M/uL (4.2-5.4); White Blood Count 9.53 K/uL (4.8-10.8)
[2018-11-19] MEDS: HEPARIN 100 UNIT/ML 5ML FLUSH FLUSH PRN ×3 (07:03→11:51)
[2018-11-19 07:16] LABS: BUN Creatinine Ratio 18.9 (10-20); Calcium 8.1 mg/dl (8.5-10.1); Creatinine Clr Calc Pharmacy 132.6 ml/min; Est GFR (African American) 115.9; Potassium 3.9 mmol/L (3.5-5.1)
[2018-11-19] MEDS: LACOSAMIDE 50 MG TABLET PO SCH (07:39)
[2018-11-19] MEDS: DOCUSATE SODIUM 100 MG CAP PO SCH (07:39)
[2018-11-19] MEDS: OXYCODONE/ACETAMINOPHEN 5mg/325mg TAB PO PRN (07:40)
[2018-11-19] MEDS: lamoTRIgine 100 MG TAB PO SCH (07:40)
--- NOTE | 2018-11-19 08:22 | Anesthesiology Progress Note ---
Date of Service November 19, 2018 Anesthesia Post Procedure Vital Signs Vital Signs: Temp Pulse Pulse Resp BP Pulse Ox 11/19/18 07:15 36.6 C 80 16 130/81 91 11/19/18 03:50 36.7 C 79 17 98/64 L 91 11/19/18 00:15 36.8 C 90 18 100/63 92 11/18/18 20:09 36.6 C 104 H 17 100/66 92 11/18/18 18:46 36.5 C 92 H 18 106/67 92 11/18/18 17:03 97 H 92 11/18/18 15:05 36.6 C 80 17 110/73 97 11/18/18 14:05 36.7 C 86 16 120/79 96 11/18/18 13:45 36.2 C L 90 19 113/85 93 11/18/18 13:30 86 16 116/73 94 11/18/18 13:20 96 H 18 130/79 94 11/18/18 13:10 88 13 142/110 H 96 11/18/18 13:00 91 H 15 154/95 H 98 11/18/18 12:50 92 H 16 131/86 100 11/18/18 12:40 97 H 22 165/102 H 99 11/18/18 12:34 36.0 C L 99 H 28 H 159/107 H 100 11/18/18 08:42 36.8 C 70 20 147/79 H 96 Pain Intensity Left Shoulder: Pain Intensity: 10 Notes Mental Status: alert / awake / arousable and participated in evaluation Patient Amnestic to Procedure: Yes Nausea / Vomiting: adequately controlled Pain: improving with treatment Airway Patency, RR, SpO2: stable & adequate BP & HR: stable & adequate Hydration State: stable & adequate Anesthetic Complications: no major complications apparent
[2018-11-19] MEDS ORDERED: ESCITALOPRAM OXALATE 10 MG TAB PO SCH (09:00)
[2018-11-19] MEDS ORDERED: MULTIVITAMIN TAB PO SCH (09:00)
--- NOTE | 2018-11-19 10:01 | Orthopedic Progress Note ---
Date of Service November 19, 2018 Assessment & Plan (1) Complete rotator cuff tear of left shoulder: POD #1, Left Shoulder RCR, DCE, SAD. Pain controlled, VSS. D/C home today with OPPT. Subjective POD #1, Doing well. Denies SOB, Cp, N/v. Pain controlled well. Physical Exam Physical Exam: Left shoulder dressings c/d/i, no drainage. Fingers mobile, sling in tact. N/V+ A&Ox3. Results & Data Vital Signs (Past 12 Hours) Vital Signs Temp Pulse Resp BP Pulse Ox 11/19/18 07:15 36.6 C 80 16 130/81 91 11/19/18 03:50 36.7 C 79 17 98/64 L 91 11/19/18 00:15 36.8 C 90 18 100/63 92
--- NOTE | 2018-11-30 16:16 | Discharge Summary ---
NOTICE TO RECEIVING DEMOCRAT/AGENCY This information is strictly Confidential and protected under [place] law. [place] law prohibits you from making any further disclosure of this information unless further disclosure is expressly permitted by the written consent of the person to whom it pertains or is authorized by law. A general authorization for the release of medical or other information is not sufficient for this purpose. Hospital accepts no responsibility if the information is made available to any other person, INCLUDING THE PATIENT. HISTORY OF PRESENT ILLNESS: This is a 47-year-old female patient of Dr. Cary'jakob complaining of chronic left shoulder pain, longstanding, now progressively getting worse. The patient has failed conservative treatment and was diagnosed with chronic rotator cuff tear, acromioclavicular joint arthritis and wished to proceed with a left arthroscopic rotator cuff repair, subacromial decompression, distal clavicle excision. PAST MEDICAL HISTORY: Anxiety, depression, seizures, upper back problems, sciatica, acid reflux, obesity, dental issues and breast cancer. PHYSICAL EXAMINATION: Left shoulder dressings were clean, dry and intact. There is no redness or drainage. Fingers were mobile. Sling was intact. Neurologically and neurovascularly, she was intact in her left upper extremity. DIAGNOSES: Status post left shoulder arthroscopic subacromial decompression and rotator cuff repair, distal clavicle excision. She has a history of anxiety, depression, seizures, upper back problems, sciatica, acid reflux, obesity, dental issues and breast cancer. Postoperative course was uneventful. The patient was discharged stable postoperative day #1. PLAN: The patient was discharged home with home exercises only. She will continue her preadmission medications with the addition of pain medications. The patient will follow up as scheduled as an outpatient.
== END 2018-11-19 12:37 | disposition home or self-care (01) ==
LOC: 3E 08:01 → ASU 08:01